=== PATIENT | female | born 1940 | race Caucasian/White ===

== ENCOUNTER 2020-10-08 15:01 | Observation (INO) ==
[2020-10-08] MEDS ORDERED: LACTATED RINGERS 1,000 ML IV ONE (15:17)
--- NOTE | 2020-10-08 15:21 | Emergency Department Note ---
SOB HPI General Chief Complaint: Shortness of Breath/Dyspnea Stated Complaint: SOB, cough Time Seen by Provider: 10/08/20 18:24 Source: patient and RN notes reviewed Mode of arrival: ambulatory Limitations: no limitations History of Present Illness HPI Narrative: Narrative: This patient was sent over from Dr. Hebert's office for what he felt was a COPD exacerbation. She has had shortness of breath and wheezing with a cough productive of white phlegm for the last several days. In the emergency room her O2 saturation is 87% on 2 L and her blood pressure is 83 systolic. She does not feel thirsty or dehydrated. She does not have any edema and no history of congestive heart failure or coronary disease. She does have a history of COPD. No other Covid symptoms such as headache loss of taste or diarrhea. Dr. Hebert did give her a DuoNeb treatment in the office. Related Data Home Medications Medication Instructions Recorded Confirmed aspirin 81 mg tablet,delayed 81 mg PO QPM tab 02/12/15 10/08/20 release sennosides 8.6 mg tablet 17.2 mg PO QNOON tab 06/22/17 10/08/20 carbidopa 25 mg-levodopa 100 mg 2 tab PO QID tab 04/14/19 10/08/20 tablet calcium citrate 500 mg PO QAM tab 10/04/19 10/08/20 cholecalciferol (vitamin D3) 2,000 unit PO QNOON 10/08/20 10/08/20 levothyroxine [Levoxyl] 50 mcg PO QAM 10/08/20 10/08/20 polyethylene glycol 3350 [Miralax] 17 g PO QPM 10/08/20 10/08/20 Previous Rx's Medication Instructions Recorded mirtazapine 30 mg tablet 30 mg PO QHS #90 tab 10/25/19 omeprazole 20 mg capsule,delayed 20 mg PO BID #180 cap 04/30/20 release inhalational spacing device #1 each 06/26/20 Spacer for inhaler #1 ea 06/27/20 lorazepam 1 mg tablet 1 mg PO BID #180 tab 07/09/20 albuterol sulfate 90 mcg/actuation 2 puff INHALATION Q6H PRN #18 g 07/17/20 aerosol inhaler ipratropium 0.5 mg-albuterol 3 mg 3 ml INHALATION BID PRN #15 ml 09/12/20 (2.5 mg base)/3 mL nebulization soln fluticasone fur. 200 mcg-umeclid 1 inh INHALATION QDAY #60 each 10/08/20 62.5 mcg-vilant 25 mcg inhalat.powder Allergies Allergy/AdvReac Type Severity Reaction Status Date / Time Banana Allergy Unknown Unknown Verified 10/08/20 15:04 Review of Systems ROS ROS Narrative: Narrative: All systems ED: reviewed and negative except as stated. [facility] Narrative Patient History Narrative: Narrative: Medical/Surgical/Family History All Active Problems (Updated 10/08/20 @ 19:49 by Carl Menon MD) Medicare annual wellness visit, subsequent (Acute) Shortness of breath (Acute) Chronic obstructive pulmonary disease (Acute) Acute exacerbation of COPD with asthma (Acute) Encounter for immunization (Acute) Weight loss (Acute) Anorexia (Acute) Left sciatic notch pain (Acute) Depression (Chronic) Right hip pain (Acute) LLQ pain (Acute) Vitamin B 12 deficiency (Chronic) History of tonsillectomy (Chronic) History of colonoscopy (Chronic 12/31/14) History of adenoidectomy (Chronic) Restless legs syndrome (Chronic) Parkinson disease (Chronic) Osteoporosis (Chronic) Menopausal and postmenopausal disorder (Chronic) Hypothyroidism (acquired) (Chronic) Hyperlipidemia (Chronic) Gastroesophageal reflux (Chronic) Dysphagia (Chronic) History of colonic polyps (Chronic) Medical History (Updated 10/08/20 @ 19:49 by Carl Menon MD) Acute exacerbation of COPD with asthma (Acute) Anorexia (Acute) Chronic obstructive pulmonary disease (Acute) Depression (Chronic) Dysphagia (Chronic) Encounter for immunization (Acute) Encounter for removal of sutures (Resolved) Gastroesophageal reflux (Chronic) History of colonic polyps (Chronic) Hyperlipidemia (Chronic) Hypothyroidism (acquired) (Chronic) Laceration (Resolved) Left sciatic notch pain (Acute) LLQ pain (Acute) Medicare annual wellness visit, subsequent (Acute) Menopausal and postmenopausal disorder (Chronic) NOS Osteoporosis (Chronic) Parkinson disease (Chronic) cervical dystonia Restless legs syndrome (Chronic) Right hip pain (Acute) Shortness of breath (Acute) Vitamin B 12 deficiency (Chronic) Weight loss (Acute) Surgical History History of adenoidectomy (Chronic) History of colonoscopy (Chronic 12/31/14) Dr Dumont [facility] History of tonsillectomy (Chronic) Family History Mother Malignant neoplasm of breast 53 Unknown Asthma Essential tremor Father , 72 Malignant neoplasm of prostate Social History Smoking Status: Never smoker Alcohol Intake Frequency: a few times a month Substance Use: does not use Exam Narrative Narrative: Narrative: General Limitations: no limitations Head Head: Present atraumatic, normocephalic and normal inspection Eye Eye: Present normal appearance and EOMI; Absent scleral icterus and conjunctival injection Neck Neck: Present normal inspection and full ROM Chest Chest: Present normal inspection and symmetric chest wall rise Respiratory Respiratory: Present wheezes, prolonged expiratory phase and decreased breath sounds; Absent respiratory distress Cardiovascular Cardiovascular: Present regular rate, normal rhythm and normal heart sounds Adbominal Abdominal: Present soft; Absent distention and tenderness Extremities Extremities: Present normal inspection and full ROM; Absent pedal edema and pretibial edema Neurological Neurological: Present alert Psychiatric Psychiatric: Present normal affect Skin Skin: Present warm (WNL) and dry; Absent diaphoresis Course Vital Signs Vital signs: Vital Signs Temperature 98.2 F 10/08/20 15:01 Pulse Rate 92 H 10/08/20 15:01 Respiratory Rate 20 10/08/20 15:01 Blood Pressure 140/109 10/08/20 15:01 Pulse Oximetry (%) 88 L 10/08/20 15:01 Temperature 98.2 F 10/08/20 15:01 Pulse Rate 93 H 10/08/20 19:31 Respiratory Rate 18 10/08/20 17:46 Blood Pressure 142/76 10/08/20 19:31 Pulse Oximetry (%) 95 10/08/20 19:31 [facility] MDM Narrative Medical decision making narrative: Narrative: This patient has a COPD exacerbation and is hypoxic off oxygen. We gave her Zithromax 500 mg IV a DuoNeb and Solu-Medrol 125 mg IV. She will be admitted to the hospital by Dr. Haddad. Lab Data Lab results reviewed: Yes I reviewed the patient's lab results. Lab results narrative: Lab work is unremarkable Result diagrams: 10/08/20 15:22 10/08/20 15:22 Labs: Lab Results 10/08/20 10/08/20 10/08/20 Range/Units 15:22 15:22 15:22 WBC 9.9 (4.5-11.0) K/mcL RBC 4.51 (4.00-5.20) M/mcL Hgb 13.8 (12.0-15.0) g/dL Hct 42.5 (36.0-48.0) % MCV 94.2 (80.0-100.0) fL MCH 30.6 (26.0-34.0) pg MCHC 32.5 (31.0-36.0) g/dL RDW 13.4 (11.5-14.5) % Plt Count 295 (140-440) K/mcL MPV 10.8 H (7.4-10.4) fL Neut % (Auto) 57.0 (38.0-78.0) % Lymph % (Auto) 21.1 (15.0-49.0) % [place] % (Auto) 7.6 (1.0-12.0) % Eos % (Auto) 13.3 H (0.0-7.0) % Baso % (Auto) 1.0 (0.0-2.0) % Lymph # (Auto) 2.09 (1.50-4.80) K/mcL [place] # (Auto) 0.75 (0.10-0.90) K/mcL Eos # (Auto) 1.32 H (0.00-0.70) K/mcL Baso # (Auto) 0.10 (0.00-0.20) K/mcL Absolute Neutrophils 5.63 (1.80-8.00) K/mcL VBG Lactic Acid (0.5-2.0) mmol/L Sodium 140 (133-145) mmol/L Potassium 4.4 (3.3-5.1) mmol/L Chloride 102 (96-108) mmol/L Carbon Dioxide 29 (22-30) mmol/L Anion Gap 9.0 (8.0-16.0) BUN 28 H (8-23) mg/dL Creatinine 1.1 (0.6-1.1) mg/dL GFR Calculation 48 Glucose 132 H (70-105) mg/dL Calcium 9.1 (8.6-10.4) mg/dL Total Bilirubin 0.3 (0.1-1.0) mg/dL AST 20 (<32) U/L ALT < 5 (<40) U/L Alkaline Phosphatase 73 (39-117) U/L Troponin T < 0.01 (<0.03) ng/mL NT-Pro-B Natriuret Pep 134.3 (<450.0) pg/mL Total Protein 7.3 (5.9-8.4) gm/dL Albumin 3.8 (3.2-5.2) gm/dL Globulin 3.5 (2.2-3.7) gm/dL Albumin/Globulin Ratio 1.1 (1.0-2.3) Urine Color Urine Appearance (Clear) Urine pH (5.0-9.0) Ur Specific [place] (1.000-1.035) Urine Protein (Negative) mg/dL Urine Glucose (UA) (Negative) mg/dL Urine Ketones (Negative) mg/dL Urine Occult Blood (Negative) mg/dL Urine Nitrate (Negative) Urine Bilirubin (Negative) mg/dL Urine Urobilinogen mg/dL Ur Leukocyte Esterase (Negative) /ug Urine RBC (0-3) /hpf Urine WBC (0-4) /hpf Ur Squamous Epith Cells (0-4) /hpf Urine Bacteria (0) /hpf Hyaline Casts (0-2) /lph Urine Mucus (None) /hpf Ur Culture Indicated? 10/08/20 10/08/20 Range/Units 15:22 17:11 WBC (4.5-11.0) K/mcL RBC (4.00-5.20) M/mcL Hgb (12.0-15.0) g/dL Hct (36.0-48.0) % MCV (80.0-100.0) fL MCH (26.0-34.0) pg MCHC (31.0-36.0) g/dL RDW (11.5-14.5) % Plt Count (140-440) K/mcL MPV (7.4-10.4) fL Neut % (Auto) (38.0-78.0) % Lymph % (Auto) (15.0-49.0) % [place] % (Auto) (1.0-12.0) % Eos % (Auto) (0.0-7.0) % Baso % (Auto) (0.0-2.0) % Lymph # (Auto) (1.50-4.80) K/mcL [place] # (Auto) (0.10-0.90) K/mcL Eos # (Auto) (0.00-0.70) K/mcL Baso # (Auto) (0.00-0.20) K/mcL Absolute Neutrophils (1.80-8.00) K/mcL VBG Lactic Acid 1.0 (0.5-2.0) mmol/L Sodium (133-145) mmol/L Potassium (3.3-5.1) mmol/L Chloride (96-108) mmol/L Carbon Dioxide (22-30) mmol/L Anion Gap (8.0-16.0) BUN (8-23) mg/dL Creatinine (0.6-1.1) mg/dL GFR Calculation Glucose (70-105) mg/dL Calcium (8.6-10.4) mg/dL Total Bilirubin (0.1-1.0) mg/dL AST (<32) U/L ALT (<40) U/L Alkaline Phosphatase (39-117) U/L Troponin T (<0.03) ng/mL NT-Pro-B Natriuret Pep (<450.0) pg/mL Total Protein (5.9-8.4) gm/dL Albumin (3.2-5.2) gm/dL Globulin (2.2-3.7) gm/dL Albumin/Globulin Ratio (1.0-2.3) Urine Color Yellow Urine Appearance Clear (Clear) Urine pH 6.0 (5.0-9.0) Ur Specific [place] 1.020 (1.000-1.035) Urine Protein Negative (Negative) mg/dL Urine Glucose (UA) Negative (Negative) mg/dL Urine Ketones 5 A (Negative) mg/dL Urine Occult Blood Negative (Negative) mg/dL Urine Nitrate Negative (Negative) Urine Bilirubin Negative (Negative) mg/dL Urine Urobilinogen Negative mg/dL Ur Leukocyte Esterase Negative (Negative) /ug Urine RBC 1 (0-3) /hpf Urine WBC 2 (0-4) /hpf Ur Squamous Epith Cells 6 H (0-4) /hpf Urine Bacteria Mod A (0) /hpf Hyaline Casts 3 H (0-2) /lph Urine Mucus Few A (None) /hpf Ur Culture Indicated? No ED POC Tests ED POC Tests: JOSE - Influenza A Negative JOSE - Influenza B Negative JOSE - SARS Antigen Negative Radiology Data Radiology results reviewed: Yes I reviewed the patient's radiology results. Radiology results narrative: Chest x-ray was negative Discharge Plan Patient/Caregiver Discharge Instructions Pt seen by [employer]/PA only: No Clinical Impression: Acute exacerbation of COPD with asthma Patient Disposition: Xfer As Inpt ([facility])
--- NOTE | 2020-10-08 15:22 | XRay Report ---
INDICATION: Dyspnea. History of COPD and asthma TECHNIQUE: AP chest x-ray chest x-ray COMPARISON: Previous chest x-rays dated 10/04/2019/ and 09/06/2020. Previous CT scan dated 09/17/2020 FINDINGS:Increased AP diameter of the chest and appearance consistent with COPD Lungs:Lungs are negative. No focal pulmonary parenchymal infiltrate or mass. There is mild peribronchial thickening which may be secondary to asthma Heart, vascular:No significant cardiomegaly. Pulmonary vascularity is normal. No pulmonary edema or pulmonary congestion Mediastinum, amy:No mediastinal widening. No hilar mass Pleura:No pleural fluid. No pleural-based mass or calcification Skeletal:Negative. IMPRESSION: 1. COPD 2. No acute or focal abnormality. No interval change Interpreted and Authenticated by: Gen Gonzalez 10/08/20
[2020-10-08] MEDS ORDERED: IPRATROPIUM/ALBUTEROL 3 ML AMPUL.NEB NEB ONE ×2 (16:16→20:09)
[2020-10-08] MEDS ORDERED: methylPREDNISolone SOD SUCC 125 MG/2 ML VIAL IV ONE (16:16)
[2020-10-08] MEDS ORDERED: AZITHROMYCIN 500 MG in DEXTROSE 5% IN WATER 250 ML IV ONE ×2 (16:16→16:25)
[2020-10-08 16:22] LABS: Eosinophils # (Auto) 1.32 K/mcL (0.00-0.70); Eosinophils % (Auto) 13.3 % (0.0-7.0); Hematocrit 42.5 % (36.0-48.0); Hemoglobin 13.8 g/dL (12.0-15.0); Lymphocytes # (Auto) 2.09 K/mcL (1.50-4.80); Lymphocytes % (Auto) 21.1 % (15.0-49.0); Mean Cell Volume 94.2 fL (80.0-100.0); Mean Corpuscular HGB Conc 32.5 g/dL (31.0-36.0); Mean Platelet Volume 10.8 fL (7.4-10.4); Monocytes # (Auto) 0.75 K/mcL (0.10-0.90); Monocytes % (Auto) 7.6 % (1.0-12.0); Platelet Count 295 K/mcL (140-440); RBC 4.51 M/mcL (4.00-5.20); Red Cell Distribution Width 13.4 % (11.5-14.5); WBC 9.9 K/mcL (4.5-11.0)
[2020-10-08 16:31] LABS: proBNP 134.3 pg/mL (<450.0)
[2020-10-08 16:32] LABS: ALT/SGPT < 5 U/L (<40); AST/SGOT 20 U/L (<32); Albumin 3.8 gm/dL (3.2-5.2); Albumin/Globulin Ratio 1.1 (1.0-2.3); Alkaline Phosphatase 73 U/L (39-117); Bilirubin,Total 0.3 mg/dL (0.1-1.0); Blood Urea Nitrogen 28 mg/dL (8-23); Calcium 9.1 mg/dL (8.6-10.4); Carbon Dioxide 29 mmol/L (22-30); Chloride 102 mmol/L (96-108); Globulin 3.5 gm/dL (2.2-3.7); Glomerular Filtration Rate 48; Glucose 132 mg/dL (70-105)
[2020-10-08 17:55] LABS: Appearance,Urine CLEAR (Clear); Bacteria,Urine MOD /hpf (0); Bilirubin,Urine Negative (Negative); Color,Urine YELLOW; Culture Indicated,Urine No; Glucose,Urine (UA) Negative (Negative); Ketones,Urine 5 mg/dL (Negative); Leukocyte Esterase,Urine Negative /ug (Negative); Mucus,Urine FEW /hpf; Nitrate,Urine Negative (Negative); Protein,Urine Negative (Negative); Urine Blood Negative (Negative); Urine Hyaline Cast 3 /lph (0-2); Urine RBC 1 /hpf (0-3); Urine Squamous Epithelial Cell 6 /hpf (0-4); Urine WBC 2 /hpf (0-4); Urobilinogen,Urine Negative
--- NOTE | 2020-10-08 19:19 | Internal Med History&Physical ---
HPI History of Present Illness Patient information: Note initiated : 10/08/20 at 7:18 pm Service Date, if different from initiated Date: [] Patient: Kavitha Tristan a 80 y/o F admitted on for SOB, cough. Chief Complaint: Shortness of breath/hypoxia History of present illness: Ms. Tristan is a 80 year old F with known history of COPD on bronchodilators who presented to the primary care physician's office today for increasing shortness of breath/cough, imaging at minor care was unremarkable. She was however found to be hypoxic and was sent to the ER for further evaluation and management of COPD. Initial work-up was consistent with COPD exacerbation/ABG with PaO2 56 on 2 L oxygen. Patient was started on 2 L oxygen/bronchodilators/IV steroids and subsequently hospital service was consulted. Chest imaging no acute process At the time of evaluation patient is alert and oriented. She denies active distress. She endorses to history as above. She denies fever, chills, productive sputum, joint pain, weight loss, rash, headache or photophobia. She denies changes in medications. Review of systems 10 point review system was performed and is negative except for 1 discussed above PFSH PFSH All Active Problems (Updated 10/08/20 @ 19:49 by Carl Menon MD) Medicare annual wellness visit, subsequent (Acute) Shortness of breath (Acute) Chronic obstructive pulmonary disease (Acute) Acute exacerbation of COPD with asthma (Acute) Encounter for immunization (Acute) Weight loss (Acute) Anorexia (Acute) Left sciatic notch pain (Acute) Depression (Chronic) Right hip pain (Acute) LLQ pain (Acute) Vitamin B 12 deficiency (Chronic) History of tonsillectomy (Chronic) History of colonoscopy (Chronic 12/31/14) History of adenoidectomy (Chronic) Restless legs syndrome (Chronic) Parkinson disease (Chronic) Osteoporosis (Chronic) Menopausal and postmenopausal disorder (Chronic) Hypothyroidism (acquired) (Chronic) Hyperlipidemia (Chronic) Gastroesophageal reflux (Chronic) Dysphagia (Chronic) History of colonic polyps (Chronic) Medical History (Updated 10/08/20 @ 19:49 by Carl Menon MD) Acute exacerbation of COPD with asthma (Acute) Anorexia (Acute) Chronic obstructive pulmonary disease (Acute) Depression (Chronic) Dysphagia (Chronic) Encounter for immunization (Acute) Encounter for removal of sutures (Resolved) Gastroesophageal reflux (Chronic) History of colonic polyps (Chronic) Hyperlipidemia (Chronic) Hypothyroidism (acquired) (Chronic) Laceration (Resolved) Left sciatic notch pain (Acute) LLQ pain (Acute) Medicare annual wellness visit, subsequent (Acute) Menopausal and postmenopausal disorder (Chronic) NOS Osteoporosis (Chronic) Parkinson disease (Chronic) cervical dystonia Restless legs syndrome (Chronic) Right hip pain (Acute) Shortness of breath (Acute) Vitamin B 12 deficiency (Chronic) Weight loss (Acute) Surgical History History of adenoidectomy (Chronic) History of colonoscopy (Chronic 12/31/14) Dr Dumont [facility] History of tonsillectomy (Chronic) Family History Mother Malignant neoplasm of breast 53 Unknown Asthma Essential tremor Father , 72 Malignant neoplasm of prostate Social History (Updated 02/07/20 @ 06:35 by Zachary Hebert MD) marital status: education level: college occupational status: retired other: 4 children/3 ext and 10 bio smoking status: Never smoker alcohol intake frequency: a few times a month substance use type: does not use MEDS/ALLERGIES Home Medications and Allergies Home Medications Medication Instructions Recorded Confirmed Type aspirin 81 mg tablet,delayed 81 mg PO QPM tab 02/12/15 10/08/20 History release sennosides 8.6 mg tablet 17.2 mg PO QNOON tab 06/22/17 10/08/20 History carbidopa 25 mg-levodopa 100 mg 2 tab PO QID tab 04/14/19 10/08/20 History tablet calcium citrate 500 mg PO QAM tab 10/04/19 10/08/20 History mirtazapine 30 mg tablet 30 mg PO QHS #90 tab 10/25/19 10/08/20 Rx omeprazole 20 mg capsule,delayed 20 mg PO BID #180 cap 04/30/20 10/08/20 Rx release inhalational spacing device #1 each 06/26/20 10/08/20 Rx Spacer for inhaler #1 ea 06/27/20 10/08/20 Rx lorazepam 1 mg tablet 1 mg PO BID #180 tab 07/09/20 10/08/20 Rx albuterol sulfate 90 mcg/actuation 2 puff INHALATION Q6H PRN #18 g 07/17/20 10/08/20 Rx aerosol inhaler ipratropium 0.5 mg-albuterol 3 mg 3 ml INHALATION BID PRN #15 ml 09/12/20 10/08/20 Rx (2.5 mg base)/3 mL nebulization soln cholecalciferol (vitamin D3) 2,000 unit PO QNOON 10/08/20 10/08/20 History fluticasone fur. 200 mcg-umeclid 1 inh INHALATION QDAY #60 each 10/08/20 10/08/20 Rx 62.5 mcg-vilant 25 mcg inhalat.powder levothyroxine [Levoxyl] 50 mcg PO QAM 10/08/20 10/08/20 History polyethylene glycol 3350 [Miralax] 17 g PO QPM 10/08/20 10/08/20 History Allergies Allergy/AdvReac Type Severity Reaction Status Date / Time Banana Allergy Unknown Unknown Verified 10/08/20 15:04 EXAM Constitutional Vitals: Temp Pulse Resp BP Pulse Ox 98.2 F 95 H 18 142/81 93 10/08/20 15:01 10/08/20 18:46 10/08/20 17:46 10/08/20 18:46 10/08/20 18:46 Thin and frail elderly, BMI 15 Head normocephalic Oral cavity moist No ear nose discharge Eye movement symmetrical Neck supple no lymphadenopathy S1-S2 regular tachycardia Rhonchi/minimally labored breathing on 3 L oxygen Nondistended nontender abdomen Lower extremity no cyanosis clubbing or joint swelling Skin no suspicious lesion Psych no hallucination Neuro normal higher function DATA Data Completed and Pending Labs: Labs from last 24 hours 10/08/20 10/08/20 10/08/20 17:11 15:22 15:22 WBC RBC Hgb Hct MCV MCH MCHC RDW Plt Count MPV Neut % (Auto) Lymph % (Auto) [place] % (Auto) Eos % (Auto) Baso % (Auto) Lymph # (Auto) [place] # (Auto) Eos # (Auto) Baso # (Auto) Absolute Neutrophils VBG Lactic Acid 1.0 Sodium Potassium Chloride Carbon Dioxide Anion Gap BUN Creatinine GFR Calculation Glucose Calcium Total Bilirubin AST ALT Alkaline Phosphatase Troponin T < 0.01 NT-Pro-B Natriuret Pep Total Protein Albumin Globulin Albumin/Globulin Ratio Urine Color Yellow Urine Appearance Clear Urine pH 6.0 Ur Specific [place] 1.020 Urine Protein Negative Urine Glucose (UA) Negative Urine Ketones 5 A Urine Occult Blood Negative Urine Nitrate Negative Urine Bilirubin Negative Urine Urobilinogen Negative Ur Leukocyte Esterase Negative Urine RBC 1 Urine WBC 2 Ur Squamous Epith Cells 6 H Urine Bacteria Mod A Hyaline Casts 3 H Urine Mucus Few A Ur Culture Indicated? No 10/08/20 10/08/20 15:22 15:22 WBC 9.9 RBC 4.51 Hgb 13.8 Hct 42.5 MCV 94.2 MCH 30.6 MCHC 32.5 RDW 13.4 Plt Count 295 MPV 10.8 H Neut % (Auto) 57.0 Lymph % (Auto) 21.1 [place] % (Auto) 7.6 Eos % (Auto) 13.3 H Baso % (Auto) 1.0 Lymph # (Auto) 2.09 [place] # (Auto) 0.75 Eos # (Auto) 1.32 H Baso # (Auto) 0.10 Absolute Neutrophils 5.63 VBG Lactic Acid Sodium 140 Potassium 4.4 Chloride 102 Carbon Dioxide 29 Anion Gap 9.0 BUN 28 H Creatinine 1.1 GFR Calculation 48 Glucose 132 H Calcium 9.1 Total Bilirubin 0.3 AST 20 ALT < 5 Alkaline Phosphatase 73 Troponin T NT-Pro-B Natriuret Pep 134.3 Total Protein 7.3 Albumin 3.8 Globulin 3.5 Albumin/Globulin Ratio 1.1 Urine Color Urine Appearance Urine pH Ur Specific [place] Urine Protein Urine Glucose (UA) Urine Ketones Urine Occult Blood Urine Nitrate Urine Bilirubin Urine Urobilinogen Ur Leukocyte Esterase Urine RBC Urine WBC Ur Squamous Epith Cells Urine Bacteria Hyaline Casts Urine Mucus Ur Culture Indicated? A/P Narrative A/P Narrative: * Acute exacerbation of COPD bronchodilators/steroids/supplemental oxygen * Acute hypoxic respiratory failure secondary to above. Continue supplemental oxygen. RT to perform exercise oximetry for home oxygen qualification * Anxiety disorder continue home dose diazepam/mirtazapine * Hypothyroidism. Continue thyroxine * History of Parkinson's continue levodopa carbidopa * Prophylaxis Heparin Plan * Observation admit * Bronchodilators/steroids/pulmonary toilet * Pre-existing medical condition management home meds * PT OT nutrition support Time Spent With Patient Time: Total time spent is greater than 50% in coordination of care (as documented) at patient's floor/unit and/or counseling patient:
[2020-10-08] MEDS ORDERED: POLYETHYLENE GLYCOL 3350 17 GM PACKET PO PRN (19:51)
[2020-10-08] MEDS ORDERED: MAGNESIUM SULFATE 2 GM/50 ML BAG IV PRN (19:51)
[2020-10-08] MEDS ORDERED: ACETAMINOPHEN 650 MG/65 ML BAG IV PRN (19:51)
[2020-10-08] MEDS ORDERED: MELATONIN 3 MG TABLET PO PRN (19:51)
[2020-10-08] MEDS ORDERED: ONDANSETRON 4 MG ODT TABLET SL PRN (19:51)
[2020-10-08] MEDS ORDERED: ONDANSETRON 4 MG/2 ML VIAL IV PRN (19:51)
[2020-10-08] MEDS ORDERED: ACETAMINOPHEN 325 MG TABLET PO PRN (19:51)
[2020-10-08] MEDS ORDERED: POTASSIUM CHLORIDE 40 MEQ in DEXTROSE 5% IN WATER 500 ML IV PRN (19:51)
[2020-10-08] MEDS ORDERED: BISACODYL 10 MG SUPP.RECT PR PRN (19:51)
[2020-10-08] MEDS: IPRATROPIUM/ALBUTEROL 3 ML AMPUL.NEB NEB SCH ×2 (20:00→22:59)
[2020-10-08] MEDS: LORazepam 1 MG TABLET PO SCH (20:35)
[2020-10-08] MEDS: DOCUSATE SODIUM 100 MG CAPSULE PO SCH (20:35)
[2020-10-08] MEDS: CARBIDOPA/LEVODOPA 25/100 TABLET PO SCH (20:36)
[2020-10-08] MEDS: OMEPRAZOLE 20 MG CAPSULE PO SCH (20:36)
[2020-10-08] MEDS: methylPREDNISolone SOD SUCC 125 MG/2 ML VIAL IV SCH (20:37)
[2020-10-08] MEDS: HEPARIN 5,000 UNIT/ML VIAL SQ SCH (20:37)
[2020-10-08] MEDS: 0.9 % SODIUM CHLORIDE 10 ML SYRINGE IV SCH (20:38)
[2020-10-08] MEDS ORDERED: MIRTAZAPINE 15 MG TABLET PO SCH (21:00)
[2020-10-08] MEDS ORDERED: SENNOSIDES/DOCUSATE SODIUM 1 TAB TABLET PO SCH (21:00)
[2020-10-08] MEDS ORDERED: NON FORMULARY MEDICATION 1 DOSE MISCELL (Polyethylene Glycol 3350 [Miralax] 17 G) PO SCH (21:00)
[2020-10-08] MEDS ORDERED: ASPIRIN 81 MG TAB.CHEW PO SCH (21:00)
[2020-10-08] MEDS: BUDESONIDE 0.5 MG/2 ML AMPUL.NEB NEB SCH (22:59)
[2020-10-09] MEDS: IPRATROPIUM/ALBUTEROL 3 ML AMPUL.NEB NEB SCH ×3 (03:21→11:15)
[2020-10-09] MEDS: 0.9 % SODIUM CHLORIDE 10 ML SYRINGE IV SCH (04:52)
[2020-10-09] MEDS ORDERED: LEVOTHYROXINE 50 MCG TABLET PO SCH (07:30)
[2020-10-09] MEDS: OMEPRAZOLE 20 MG CAPSULE PO SCH (07:39)
[2020-10-09] MEDS: BUDESONIDE 0.5 MG/2 ML AMPUL.NEB NEB SCH (07:47)
[2020-10-09] MEDS ORDERED: MULTIVIT,THER IRON,CA,FA & MIN 1 TABLET PO SCH (09:00)
[2020-10-09] MEDS ORDERED: CALCIUM (OYSTER SHELL) 500 MG TABLET PO SCH (09:00)
[2020-10-09] MEDS: CARBIDOPA/LEVODOPA 25/100 TABLET PO SCH ×2 (09:45→12:15)
[2020-10-09] MEDS: LORazepam 1 MG TABLET PO SCH (09:45)
[2020-10-09] MEDS: HEPARIN 5,000 UNIT/ML VIAL SQ SCH (09:45)
[2020-10-09] MEDS: DOCUSATE SODIUM 100 MG CAPSULE PO SCH (09:45)
[2020-10-09] MEDS: methylPREDNISolone SOD SUCC 125 MG/2 ML VIAL IV SCH (09:46)
--- NOTE | 2020-10-09 11:15 | Discharge Summary ---
Discharge Provider Provider Patient information: Note initiated : 10/09/20 at 11:12 am Service Date, if different from initiated Date: [] Patient: Kavitha Tristan a 80 y/o F admitted on 10/08/20 for SOB, cough. Discharge diagnosis * Acute exacerbation of COPD-clinically improved on bronchodilators/steroids/supplemental oxygen. * Acute hypoxic respiratory failure secondary to above. Continue oxygen at 2 to 3 L at rest to maintain sats around 86 to 88%. Discharge home oxygen * Anxiety disorder continue home dose diazepam/mirtazapine * Hypothyroidism. Managed on thyroxine * History of Parkinson's continue levodopa carbidopa Brief hospital course History of present illness: Ms. Tristan is a 80 year old F with known history of COPD on bronchodilators who presented to the primary care physician's office today for increasing shortness of breath/cough, imaging at [facility] was unremarkable. She was however found to be hypoxic and was sent to the ER for further evaluation and management of COPD. Initial work-up was consistent with COPD exacerbation/ABG with PaO2 56 on 2 L oxygen. Patient was started on 2 L oxygen/bronchodilators/IV steroids and subsequently hospital service was consulted. Chest imaging no acute process At the time of evaluation patient is alert and oriented. She denies active distress. She endorses to history as above. She denies fever, chills, productive sputum, joint pain, weight loss, rash, headache or photophobia. She denies changes in medications. 10/09-patient doing well. No overnight events. On 2 L oxygen at rest and 5-6 on exertion. Qualifies for home oxygen. Discharging home on bronchodilat ors/steroids/home oxygen and recommend follow-up with pulmonology/PCP for optimization of COPD management. Date of admission: 10/08/20 19:46 Discharge date: 10/09/20 Primary care physician: Zachary Hebert MD Consults: 10/08/20 Consult to Physician [CONS] Stat Comment: Consulting Provider: Jeovany Payne Reason For Exam: Physician to Consult Discharge Meds Discharge Medications Home Medications aspirin 81 mg tablet,delayed release 81 mg PO QPM tab 02/12/15 [History Confirmed 10/08/20 Last Taken Unknown] sennosides 8.6 mg tablet 17.2 mg PO QNOON tab 06/22/17 [History Confirmed 10/08/20 Last Taken Unknown] carbidopa 25 mg-levodopa 100 mg tablet 2 tab PO QID tab 04/14/19 [History Confirmed 10/08/20 Last Taken Unknown] calcium citrate 500 mg PO QAM tab 10/04/19 [History Confirmed 10/08/20 Last Taken Unknown] mirtazapine 30 mg tablet 30 mg PO QHS #90 tab 10/25/19 [Rx Confirmed 10/08/20 Last Taken Unknown] omeprazole 20 mg capsule,delayed release 20 mg PO BID #180 cap 04/30/20 [Rx Confirmed 10/08/20 Last Taken Unknown] inhalational spacing device #1 each 06/26/20 [Rx Confirmed 10/08/20 Last Taken Unknown] Spacer for inhaler #1 ea 06/27/20 [Rx Confirmed 10/08/20 Last Taken Unknown] lorazepam 1 mg tablet 1 mg PO BID #180 tab 07/09/20 [Rx Confirmed 10/08/20 Last Taken Unknown] albuterol sulfate 90 mcg/actuation aerosol inhaler 2 puff INHALATION Q6H PRN #18 g 07/17/20 [Rx Confirmed 10/08/20 Last Taken Unknown] ipratropium 0.5 mg-albuterol 3 mg (2.5 mg base)/3 mL nebulization soln 3 ml INHALATION BID PRN #15 ml 09/12/20 [Rx Confirmed 10/08/20 Last Taken Unknown] cholecalciferol (vitamin D3) 2,000 unit PO QNOON 10/08/20 [History Confirmed 10/08/20 Last Taken Unknown] fluticasone fur. 200 mcg-umeclid 62.5 mcg-vilant 25 mcg inhalat.powder 1 inh INHALATION QDAY #60 each 10/08/20 [Rx Confirmed 10/08/20 Last Taken Unknown] levothyroxine [Levoxyl] 50 mcg PO QAM 10/08/20 [History Confirmed 10/08/20 Last Taken Unknown] polyethylene glycol 3350 [Miralax] 17 g PO QPM 10/08/20 [History Confirmed 10/08/20 Last Taken Unknown] prednisone 40 mg PO QDAY #6 tab 10/09/20 [Rx Last Taken Unknown] COURSE Hospital Course Hospital course: . Discharge diagnosis: . Time Spent with Patient Time attestation: Total time spent providing and/or coordinating discharge services: EXAM Constitutional Vitals: Temp Pulse Resp BP Pulse Ox 98.4 F 89 20 128/70 93 10/09/20 08:00 10/09/20 08:00 10/09/20 08:00 10/09/20 08:00 10/09/20 08:00 Discharge Data Data Completed and Pending Labs on day of discharge: Labs from last 24 hours 10/09/20 10/09/20 10/08/20 05:10 05:10 17:11 WBC Pending RBC Pending Hgb Pending Hct Pending MCV Pending MCH Pending MCHC Pending RDW Pending Plt Count Pending MPV Pending Neut % (Auto) Pending Lymph % (Auto) [place] % (Auto) Eos % (Auto) Baso % (Auto) Lymph # (Auto) [place] # (Auto) Eos # (Auto) Baso # (Auto) Absolute Neutrophils VBG Lactic Acid Sodium Pending Potassium Pending Chloride Pending Carbon Dioxide Pending Anion Gap Pending BUN Pending Creatinine Pending GFR Calculation Pending Glucose Pending Uric Acid Pending Calcium Pending Phosphorus Pending Magnesium Pending Total Bilirubin Pending Direct Bilirubin Pending GGT Pending AST Pending ALT Pending Alkaline Phosphatase Pending Lactate Dehydrogenase Pending Troponin T NT-Pro-B Natriuret Pep Total Protein Pending Albumin Pending Globulin Pending Albumin/Globulin Ratio Pending Triglycerides Pending Urine Color Yellow Urine Appearance Clear Urine pH 6.0 Ur Specific [place] 1.020 Urine Protein Negative Urine Glucose (UA) Negative Urine Ketones 5 A Urine Occult Blood Negative Urine Nitrate Negative Urine Bilirubin Negative Urine Urobilinogen Negative Ur Leukocyte Esterase Negative Urine RBC 1 Urine WBC 2 Ur Squamous Epith Cells 6 H Urine Bacteria Mod A Hyaline Casts 3 H Urine Mucus Few A Ur Culture Indicated? No 10/08/20 10/08/20 10/08/20 15:22 15:22 15:22 WBC RBC Hgb Hct MCV MCH MCHC RDW Plt Count MPV Neut % (Auto) Lymph % (Auto) [place] % (Auto) Eos % (Auto) Baso % (Auto) Lymph # (Auto) [place] # (Auto) Eos # (Auto) Baso # (Auto) Absolute Neutrophils VBG Lactic Acid 1.0 Sodium 140 Potassium 4.4 Chloride 102 Carbon Dioxide 29 Anion Gap 9.0 BUN 28 H Creatinine 1.1 GFR Calculation 48 Glucose 132 H Uric Acid Calcium 9.1 Phosphorus Magnesium Total Bilirubin 0.3 Direct Bilirubin GGT AST 20 ALT < 5 Alkaline Phosphatase 73 Lactate Dehydrogenase Troponin T < 0.01 NT-Pro-B Natriuret Pep 134.3 Total Protein 7.3 Albumin 3.8 Globulin 3.5 Albumin/Globulin Ratio 1.1 Triglycerides Urine Color Urine Appearance Urine pH Ur Specific [place] Urine Protein Urine Glucose (UA) Urine Ketones Urine Occult Blood Urine Nitrate Urine Bilirubin Urine Urobilinogen Ur Leukocyte Esterase Urine RBC Urine WBC Ur Squamous Epith Cells Urine Bacteria Hyaline Casts Urine Mucus Ur Culture Indicated? 10/08/20 15:22 WBC 9.9 RBC 4.51 Hgb 13.8 Hct 42.5 MCV 94.2 MCH 30.6 MCHC 32.5 RDW 13.4 Plt Count 295 MPV 10.8 H Neut % (Auto) 57.0 Lymph % (Auto) 21.1 [place] % (Auto) 7.6 Eos % (Auto) 13.3 H Baso % (Auto) 1.0 Lymph # (Auto) 2.09 [place] # (Auto) 0.75 Eos # (Auto) 1.32 H Baso # (Auto) 0.10 Absolute Neutrophils 5.63 VBG Lactic Acid Sodium Potassium Chloride Carbon Dioxide Anion Gap BUN Creatinine GFR Calculation Glucose Uric Acid Calcium Phosphorus Magnesium Total Bilirubin Direct Bilirubin GGT AST ALT Alkaline Phosphatase Lactate Dehydrogenase Troponin T NT-Pro-B Natriuret Pep Total Protein Albumin Globulin Albumin/Globulin Ratio Triglycerides Urine Color Urine Appearance Urine pH Ur Specific [place] Urine Protein Urine Glucose (UA) Urine Ketones Urine Occult Blood Urine Nitrate Urine Bilirubin Urine Urobilinogen Ur Leukocyte Esterase Urine RBC Urine WBC Ur Squamous Epith Cells Urine Bacteria Hyaline Casts Urine Mucus Ur Culture Indicated? Discharge Plan Patient/Caregiver Discharge Instructions Activity: increase activity as tolerated and wear oxygen at all times Diet: Regular Diet Activity Restrictions/Additional Instructions: Home oxygen to titrate to sats between 86 to 88% Continue steroids for additional 3 days Bronchodilators Follow-up PCP in 5 to 7 days outpatient pulmonology follow-up for management of COPD Prescriptions: New prednisone 20 mg tablet 40 mg PO QDAY Qty: 6 RF: 0 Continued omeprazole 20 mg capsule,delayed release(DR/EC) 20 mg PO BID Qty: 180 RF: 1 (DME) Aerovent Plus Spacer See Rx Instructions .ROUTE .MEDSUPPLY Qty: 1 RF: 0 (DME) Spacer for inhaler Qty: 1 RF: 0 lorazepam [Ativan] 1 mg tablet 1 mg PO BID Qty: 180 RF: 0 albuterol sulfate [ProAir HFA] 90 mcg/actuation HFA aerosol inhaler 2 puff INHALATION Q6H PRN (Reason: shortness of breath or wheezing) Qty: 18 RF: 5 ipratropium-albuterol 0.5 mg-3 mg(2.5 mg base)/3 mL solution for nebulization 3 ml INHALATION BID PRN (Reason: Coughing and wheezing) Qty: 15 RF: 1 aspirin 81 mg tablet,delayed release (DR/EC) 81 mg PO QPM RF: 0 sennosides [Senna Laxative] 8.6 mg tablet 17.2 mg PO QNOON RF: 0 calcium citrate 250 mg calcium tablet 500 mg PO QAM RF: 0 carbidopa-levodopa [Sinemet] 25-100 mg tablet 2 tab PO QID RF: 0 mirtazapine 30 mg tablet 30 mg PO QHS Qty: 90 RF: 1 Trelegy Ellipta 200-62.5-25 mcg blister with device 1 inh INHALATION QDAY Qty: 60 RF: 5 polyethylene glycol 3350 [Miralax] 17 gram powder in packet 17 g PO QPM RF: 0 levothyroxine [Levoxyl] 50 mcg tablet 50 mcg PO QAM RF: 0 cholecalciferol (vitamin D3) 1,000 unit capsule 2,000 unit PO QNOON RF: 0 Follow Up Plan Patient Disposition: Home, Self-Care Rehab Potential: Fair I certify that the patient requires SNF services: No Overall status at discharge: patient is progressing back to baseline Discharge Orders: Discharge Order (Routine); Ordered 10/09/20 Ordered By: Jeovany COLÓN VTE Deep Vein Thrombosis/Pulmonary Embolism Present on Admission: No
[2020-10-09] MEDS ORDERED: VITAMIN D3 1,000 UNIT TABLET PO SCH (12:00)
[2020-10-09] MEDS ORDERED: SENNOSIDES 1 TABLET PO SCH (12:00)
[2020-10-09 13:55] LABS: Basophils # (Auto) 0.02 K/mcL (0.00-0.20); Basophils % (Auto) 0.3 % (0.0-2.0); Eosinophils # (Auto) 0 K/mcL (0.00-0.70); Eosinophils % (Auto) 0 % (0.0-7.0); Hematocrit 41.5 % (36.0-48.0); Hemoglobin 13.2 g/dL (12.0-15.0); Lymphocytes # (Auto) 0.98 K/mcL (1.50-4.80); Lymphocytes % (Auto) 14.3 % (15.0-49.0); Mean Cell Volume 94.5 fL (80.0-100.0); Mean Corpuscular HGB Conc 31.8 g/dL (31.0-36.0); Monocytes % (Auto) 4.4 % (1.0-12.0); Platelet Count 283 K/mcL (140-440); RBC 4.39 M/mcL (4.00-5.20); Red Cell Distribution Width 13.7 % (11.5-14.5); WBC 6.9 K/mcL (4.5-11.0)
[2020-10-09 14:19] LABS: ALT/SGPT 11 U/L (<40); AST/SGOT 19 U/L (<32); Albumin 3.5 gm/dL (3.2-5.2); Albumin/Globulin Ratio 1.1 (1.0-2.3); Alkaline Phosphatase 65 U/L (39-117); Bilirubin,Direct < 0.2 mg/dL (<0.3); Bilirubin,Total 0.3 mg/dL (0.1-1.0); Blood Urea Nitrogen 24 mg/dL (8-23); Calcium 8.9 mg/dL (8.6-10.4); Carbon Dioxide 26 mmol/L (22-30); Chloride 102 mmol/L (96-108); Globulin 3.3 gm/dL (2.2-3.7); Glomerular Filtration Rate 61; Glucose 134 mg/dL (70-105); Lactate Dehydrogenase 224 U/L (135-225); Phosphorous 4.1 mg/dL (2.5-4.5); Triglycerides 43 mg/dL (<150); Uric Acid 4.6 mg/dL (2.5-8.0)
[2020-10-09] MEDS ORDERED: POLYETHYLENE GLYCOL 3350 17 GM PACKET PO SCH (21:00)
== END 2020-10-09 13:45 | disposition home or self-care (01) ==
LOC: MEDSUR 15:01 → ED 15:01 → MEDSUR 19:44
PROVIDERS: ADMIT Internal Medicine; ATTEND Internal Medicine

== ENCOUNTER 2022-10-09 20:50 | Inpatient (IN) ==
--- NOTE | 2022-10-09 21:03 | Emergency Department Note ---
Fall HPI General Chief Complaint: Fall Stated Complaint: fall Time Seen by Provider: 10/09/22 20:53 Source: family Mode of arrival: wheelchair Limitations: other History of Present Illness HPI Narrative: Narrative: Karyna presents to the ED with patient with complaints of a fall that occurred shortly prior to arrival. states that he heard a thump in the kitchen and came in and found her on the ground. The fall was unwitnessed. has dementia and does not communicate well. states that she is not supposed to be walking without a walker but she was in the kitchen without her walker. He states that she has been moaning complaining of the left hip hurts. he states that she was bleeding from the left side of her head. denies nausea, vomiting, loss of consciousness, complains of abdominal pain or shoulder pain. denies any other alleviating or aggravating factors. He states that his is at her baseline mentation with no deficits. Related Data Home Medications Medication Instructions Recorded Confirmed aspirin 81 mg tablet,delayed 81 mg PO QPM 02/12/15 09/28/22 release sennosides 8.6 mg tablet (Senna 17.2 mg PO QNOON 06/22/17 09/28/22 Laxative) carbidopa 25 mg-levodopa 100 mg 2 tab PO QID 04/14/19 09/28/22 tablet (Sinemet) calcium citrate 500 mg PO QAM 10/04/19 09/28/22 cholecalciferol (vitamin D3) 50 2,000 unit PO QNOON 10/08/20 09/28/22 mcg (2,000 unit) capsule polyethylene glycol 3350 17 gram 17 g PO QPM 10/08/20 09/28/22 oral powder packet (Miralax) Previous Rx's Medication Instructions Recorded mirtazapine 30 mg tablet 30 mg PO QHS #90 tabs 04/21/22 fluticasone fur. 200 mcg-umeclid 1 ea PO QDAY #60 ea 07/16/22 62.5 mcg-vilant 25 mcg inhalat.powder (Trelegy Ellipta) levothyroxine 50 mcg tablet See Rx Instructions .Route 07/21/22 .COMPLEX #90 tabs omeprazole 20 mg capsule,delayed 20 mg PO BID #180 caps 07/30/22 release lorazepam 1 mg tablet (Ativan) 1 mg PO .COMPLEX #90 tabs 09/09/22 Allergies Allergy/AdvReac Type Severity Reaction Status Date / Time Banana AdvReac Unknown Nausea Verified 09/28/22 13:33 Review of Systems ROS ROS Narrative: Narrative: All systems ED: reviewed and negative except as stated. [facility] Narrative Patient History Narrative: Narrative: Medical/Surgical/Family History All Active Problems (Updated 10/09/22 @ 23:39 by Ethan Smith DO) Closed left hip fracture (Acute) Dementia (Acute) Fall (Acute) Laceration of scalp (Acute) Post-nasal drip (Acute) Pneumonia (Acute) Abnormal finding on CT scan (Acute) Excessive salivation (Acute) Dyspepsia (Acute) Laceration (Acute) Anxiety (Acute) Annual physical exam (Acute) Oral thrush (Acute) Hyperkalemia (Acute) Nocturnal hypoxemia (Chronic) Hospital discharge follow-up (Acute) Medicare annual wellness visit, subsequent (Acute) Shortness of breath (Acute) Chronic obstructive pulmonary disease (Chronic) Encounter for immunization (Acute) Weight loss (Acute) Anorexia (Acute) Left sciatic notch pain (Acute) Depression (Chronic) Right hip pain (Acute) LLQ pain (Acute) Vitamin B 12 deficiency (Chronic) History of tonsillectomy (Chronic) History of colonoscopy (Chronic 12/31/14) History of adenoidectomy (Chronic) Restless legs syndrome (Chronic) Parkinson disease (Chronic) Osteoporosis (Chronic) Menopausal and postmenopausal disorder (Chronic) Hypothyroidism (acquired) (Chronic) Hyperlipidemia (Chronic) Gastroesophageal reflux (Chronic) Dysphagia (Chronic) History of colonic polyps (Chronic) Medical History Annual physical exam Anorexia Chronic obstructive pulmonary disease Depression Dysphagia Encounter for immunization Encounter for removal of sutures Gastroesophageal reflux History of colonic polyps Hospital discharge follow-up Hyperkalemia Hyperlipidemia Hypothyroidism (acquired) Laceration Left sciatic notch pain LLQ pain Medicare annual wellness visit, subsequent Menopausal and postmenopausal disorder NOS Nocturnal hypoxemia Oral thrush Osteoporosis Parkinson disease cervical dystonia Restless legs syndrome Right hip pain Shortness of breath Vitamin B 12 deficiency Weight loss Surgical History History of adenoidectomy History of colonoscopy (12/31/14) Dr Dumont [facility] History of tonsillectomy Family History Mother Malignant neoplasm of breast 53 Unknown Asthma Essential tremor Father , 72 Malignant neoplasm of prostate Social History Smoking Status: Never smoker Alcohol Intake Frequency: a few times a month Substance Use: does not use Exam Narrative Narrative: Narrative: General Limitations: other General appearance: Present alert Expanded Head Head image: 1. 1 cm laceration Eye Eye: Present PERRL and EOMI ENT ENT: Present normal oropharynx and mucous membranes moist Neck Neck: Present other (Placed in c-collar) Respiratory Respiratory: Present normal lung sounds bilaterally; Absent stridor Cardiovascular Cardiovascular: Present regular rate and normal rhythm Adbominal Abdominal: Present soft and normal bowel sounds; Absent tenderness Extremities Extremities: Present normal capillary refill Expanded Lower Extremity Hip/Pelvis: Present tenderness; Absent erythema or shortening Neurological Neurological: Present alert Psychiatric Psychiatric: Present other (Unable to assess due to patient's baseline dementia) Skin Skin: Present warm (WNL) and normal color Course Course Course Narrative: She was evaluated status post fall with a laceration to her left head. Area thoroughly cleansed and irrigated and [address] of the head and cervical spine were obtained with image reviewed myself which are negative for any acute pathology. Patient was cleared and cervical collar with regular range of motion. CT of the pelvis was obtained with image reviewed myself which shows a left femoral neck fracture. Case was discussed with orthopedic surgery who recommends admission to the hospital service. Labs are obtained are unremarkable. Chest x-ray obtained with image reviewed myself with no acute findings. Laceration to the left side of her scalp that was stapled shut after being thoroughly cleansed and irrigated. Patient was given IV morphine for her discomfort. Tetanus shot administered. Case discussed with hospitalist who has agreed to admit the patient. Consultations Consultation #1: Case discussed with orthopedic surgeon, Dr. Thomson, who recommends the patient be admitted to the hospitalist service and made n.p.o. after midnight for planned surgical correction tomorrow Time: 22:48 Consultation #2: Case discussed with hospitalist who has agreed to admit the patient. Time: 23:04 Vital Signs Vital signs: Vital Signs Temperature 98.2 F 10/09/22 20:51 Pulse Rate 5 L 10/09/22 20:51 Respiratory Rate 17 10/09/22 20:51 Blood Pressure 119/86 10/09/22 20:51 Pulse Oximetry (%) 97 10/09/22 20:51 Oxygen Delivery Method Room Air 10/09/22 20:51 Temperature 98.2 F 10/09/22 20:51 Pulse Rate 77 10/09/22 22:31 Respiratory Rate 17 10/09/22 20:51 Blood Pressure 134/79 10/09/22 22:31 Pulse Oximetry (%) 100 10/09/22 22:31 Oxygen Delivery Method Room Air 10/09/22 20:51 Procedures Laceration Laceration 1: Site: scalp Side (If applicable): left Length of wound repaired (cm): 1 Description: Present stellate Depth: simple, single layer Local Anesthetic: none Pre-repair: wound explored, irrigated extensively and deep structures intact Skin layer closed with: filomena Number of sutures: 3 MDM MDM Narrative Medical decision making narrative: Narrative: Differential Diagnosis Differential Diagnosis: Intracranial bleed, laceration, hip fracture, cervical fracture Medical Records Medical records reviewed: Yes I reviewed the patient's medical records. Lab Data Lab results reviewed: Yes I reviewed the patient's lab results. 10/09/22 21:42 Labs: Lab Results 10/09/22 10/09/22 10/09/22 Range/Units 21:35 21:42 21:42 WBC 10.9 (4.5-11.0) K/mcL RBC 3.98 (3.59-5.38) M/mcL Hgb 11.7 (11.2-15.7) g/dL Hct 36.6 (34.1-44.9) % POC Hct 34.0 L (36-48) MCV 92.0 (80.0-100.0) fL MCH 29.4 (26.0-34.0) pg MCHC 32.0 (31.0-36.0) g/dL RDW 12.9 (11.5-14.5) % Plt Count 294 (140-440) K/mcL MPV 10.7 (8.8-12.5) fL Immature Gran % (Auto) 0.6 H (0.0-0.5) % Neut % (Auto) 60.9 (38.0-78.0) % Lymph % (Auto) 22.6 (15.5-49.0) % [place] % (Auto) 8.6 (1.0-12.0) % Eos % (Auto) 6.8 (0.0-7.0) % Baso % (Auto) 0.5 (0.0-2.0) % Lymph # (Auto) 2.45 (1.50-4.80) K/mcL [place] # (Auto) 0.93 H (0.10-0.90) K/mcL Eos # (Auto) 0.74 H (0.00-0.70) K/mcL Baso # (Auto) 0.05 (0.00-0.30) K/mcL Immature Gran # 0.07 H (0.00-0.05) K/mcl Absolute Neutrophils 6.62 (1.80-8.00) K/mcL POC PT 12.5 (11.9-14.5) POC INR 1.0 (0.8-1.2) POC Sodium 139 (133-145) POC Potassium 4.3 (3.3-5.1) POC Chloride 106 (96-108) POC Total CO2 28.0 (22-30) POC BUN 33 H (6-20) POC Creatinine 0.9 (0.6-1.2) POC Glucose 103 (70-105) POC WB Ioniz Calcium 1.00 L (1.16-1.32) Radiology Data Radiology results reviewed: Yes I reviewed the patient's radiology results. Radiology results narrative: ET of the head and cervical spine obtained with image reviewed myself, no acute findings CT of the pelvis obtained with image reviewed myself which shows a left femoral neck fracture Core Measures AMI Core Measures Followed: Yes Discharge Plan Patient/Caregiver Discharge Instructions Pt seen by [employer]/PA only: No Clinical Impression: Closed left hip fracture, Dementia, Fall, Laceration of scalp Patient Disposition: Xfer As Outpt/Obs ([facility]) Condition: Fair Follow up with: Zachary Hebert MD [Primary Care Provider] - Prescriptions: No Action mirtazapine 30 mg tablet 30 mg PO QHS Qty: 90 1RF Trelegy Ellipta 200-62.5-25 mcg blister with device 1 ea PO QDAY Qty: 60 2RF levothyroxine 50 mcg tablet See Rx Instructions .ROUTE .COMPLEX Qty: 90 1RF Dose Instruction: Take 1 tablet by mouth once daily Rx Instructions: Take 1 tablet by mouth once daily omeprazole 20 mg capsule,delayed release(DR/EC) 20 mg PO BID Qty: 180 1RF lorazepam [Ativan] 1 mg tablet 1 mg PO .COMPLEX Qty: 90 0RF Patient Comments: 90 days Rx Instructions: 1 mg PO in AM, 1 mg at noon, 1 mg at evening; *Must last 30 days. aspirin 81 mg tablet,delayed release (DR/EC) 81 mg PO QPM sennosides [Senna Laxative] 8.6 mg tablet 17.2 mg PO QNOON calcium citrate 250 mg calcium tablet 500 mg PO QAM Rx Instructions: [address] Hebert carbidopa-levodopa [Sinemet] 25-100 mg tablet 2 tab PO QID polyethylene glycol 3350 [Miralax] 17 gram powder in packet 17 g PO QPM Patient Comments: mix one capful (17 grams) in 8 oz of water or liquid of choice and drink once to twice daily as needed for constipation. Rx Instructions: mix into 4-8 oz. of any hot/cold/room temp. beverage and drink immediately cholecalciferol (vitamin D3) 1,000 unit capsule 2,000 unit PO QNOON Rx Instructions: administer with meals
[2022-10-09] MEDS ORDERED: DIPH,PERTUSS(ACELL),TET VAC/PF 0.5 ML SYRINGE IM ONE (21:04)
[2022-10-09 21:39] LABS: POC Creatinine 0.9 (0.6-1.2); POC Potassium 4.3 (3.3-5.1)
[2022-10-09 21:44] LABS: POC Pro Time 12.5 (11.9-14.5)
[2022-10-09 22:10] LABS: Basophils # (Auto) 0.05 K/mcL (0.00-0.30); Basophils % (Auto) 0.5 % (0.0-2.0); Eosinophils # (Auto) 0.74 K/mcL (0.00-0.70); Eosinophils % (Auto) 6.8 % (0.0-7.0); Hematocrit 36.6 % (34.1-44.9); Hemoglobin 11.7 g/dL (11.2-15.7); Lymphocytes # (Auto) 2.45 K/mcL (1.50-4.80); Lymphocytes % (Auto) 22.6 % (15.5-49.0); Mean Platelet Volume 10.7 fL (8.8-12.5); Monocytes # (Auto) 0.93 K/mcL (0.10-0.90); Monocytes % (Auto) 8.6 % (1.0-12.0); Neutrophils % (Auto) 60.9 % (38.0-78.0); Platelet Count 294 K/mcL (140-440); RBC 3.98 M/mcL (3.59-5.38); Red Cell Distribution Width 12.9 % (11.5-14.5); WBC 10.9 K/mcL (4.5-11.0)
[2022-10-09] MEDS ORDERED: morphine 2 MG/ML VIAL IV ONE (22:49)
--- NOTE | 2022-10-09 23:18 | Internal Med History&Physical ---
HPI History of Present Illness Patient information: Note initiated : 10/09/22 at 11:12 pm Service Date, if different from initiated Date: [] Patient: Kavitha Tristan 82 y/o F admitted on for fall. Chief Complaint: [] History of present illness: Ms. Tristan is a 82 year old female with a history of dementia, hyperlipidemia, COPD, Hypothyroid, GERD, dysphagia who was brought to the emergency department after she had a ground-level fall at home and hit her head. In the emergency department, the patient was found to have a left femoral neck fracture and a minor laceration on her head that was closed with filomena in the ED. The patient will be admitted for surgical correction of the hip fracture. Review of systems Constitutional: no fever, fatigue, or weight loss Eyes: no vision changes or pain Cardiovascular: no chest pain, no palpitations Respiratory: no cough or dyspnea Gastrointestinal: no abdominal pain, no nausea, vomiting, or diarrhea Genitourinary: no dysuria or difficulty voiding Musculoskeletal: Left hip pain with movement. Integumentary: Scalp laceration Neurological: no focal weakness or numbness Psychiatric: no anxiety or depression Physical exam Head: Atraumatic, normal inspection. Eyes: normal appearance, no scleral icterus. Neck: full ROM Respiratory: no respiratory distress. Cardiovascular: normal rate and rhythm, S1, S2. GI/Abdominal: soft, nontender, no guarding. Extremities: External rotation of the left lower extremity consistent with femoral neck fracture. Neurological: CN II-XII intact, intact motor, intact sensation. Psychiatric: normal mood. Skin: Scalp laceration closed with filomena PFSH PFSH All Active Problems (Updated 10/09/22 @ 23:39 by Ethan Smith DO) Closed left hip fracture (Acute) Dementia (Acute) Fall (Acute) Laceration of scalp (Acute) Post-nasal drip (Acute) Pneumonia (Acute) Abnormal finding on CT scan (Acute) Excessive salivation (Acute) Dyspepsia (Acute) Laceration (Acute) Anxiety (Acute) Annual physical exam (Acute) Oral thrush (Acute) Hyperkalemia (Acute) Nocturnal hypoxemia (Chronic) Hospital discharge follow-up (Acute) Medicare annual wellness visit, subsequent (Acute) Shortness of breath (Acute) Chronic obstructive pulmonary disease (Chronic) Encounter for immunization (Acute) Weight loss (Acute) Anorexia (Acute) Left sciatic notch pain (Acute) Depression (Chronic) Right hip pain (Acute) LLQ pain (Acute) Vitamin B 12 deficiency (Chronic) History of tonsillectomy (Chronic) History of colonoscopy (Chronic 12/31/14) History of adenoidectomy (Chronic) Restless legs syndrome (Chronic) Parkinson disease (Chronic) Osteoporosis (Chronic) Menopausal and postmenopausal disorder (Chronic) Hypothyroidism (acquired) (Chronic) Hyperlipidemia (Chronic) Gastroesophageal reflux (Chronic) Dysphagia (Chronic) History of colonic polyps (Chronic) Medical History Annual physical exam Anorexia Chronic obstructive pulmonary disease Depression Dysphagia Encounter for immunization Encounter for removal of sutures Gastroesophageal reflux History of colonic polyps Hospital discharge follow-up Hyperkalemia Hyperlipidemia Hypothyroidism (acquired) Laceration Left sciatic notch pain LLQ pain Medicare annual wellness visit, subsequent Menopausal and postmenopausal disorder NOS Nocturnal hypoxemia Oral thrush Osteoporosis Parkinson disease cervical dystonia Restless legs syndrome Right hip pain Shortness of breath Vitamin B 12 deficiency Weight loss Surgical History History of adenoidectomy History of colonoscopy (12/31/14) Dr Dumont History of tonsillectomy Family History Mother Malignant neoplasm of breast 53 Unknown Asthma Essential tremor Father , 72 Malignant neoplasm of prostate Social History marital status: education level: college occupational status: retired other: 4 children/3 ext and 10 bio smoking status: Former smoker alcohol intake frequency: a few times a month substance use type: does not use MEDS/ALLERGIES Home Medications and Allergies Home Medications Medication Instructions Recorded Confirmed Type aspirin 81 mg tablet,delayed 81 mg PO QPM 02/12/15 10/10/22 History release sennosides 8.6 mg tablet (Senna 17.2 mg PO QNOON 06/22/17 10/10/22 History Laxative) carbidopa 25 mg-levodopa 100 mg 2 tab PO QID 04/14/19 10/10/22 History tablet (Sinemet) calcium citrate 500 mg PO QAM 10/04/19 10/10/22 History cholecalciferol (vitamin D3) 50 2,000 unit PO QNOON 10/08/20 10/10/22 History mcg (2,000 unit) capsule polyethylene glycol 3350 17 gram 17 g PO QPM 10/08/20 10/10/22 History oral powder packet (Miralax) mirtazapine 30 mg tablet 30 mg PO QHS #90 tabs 04/21/22 10/10/22 Rx fluticasone fur. 200 mcg-umeclid 1 ea PO QDAY #60 ea 07/16/22 10/10/22 Rx 62.5 mcg-vilant 25 mcg inhalat.powder (Trelegy Ellipta) levothyroxine 50 mcg tablet See Rx Instructions .Route 07/21/22 10/10/22 Rx .COMPLEX #90 tabs omeprazole 20 mg capsule,delayed 20 mg PO BID #180 caps 07/30/22 10/10/22 Rx release lorazepam 1 mg tablet (Ativan) 1 mg PO .COMPLEX #90 tabs 09/09/22 10/10/22 Rx Allergies Allergy/AdvReac Type Severity Reaction Status Date / Time Banana AdvReac Unknown Nausea Verified 09/28/22 13:33 EXAM Constitutional Vitals: Temp Pulse Resp BP Pulse Ox O2 Del Method 98.2 F 77 17 134/79 100 Room Air 10/09/22 20:51 10/09/22 22:31 10/09/22 20:51 10/09/22 22:31 10/09/22 22:31 10/09/22 20:51 DATA Data Completed and Pending Labs: Labs from last 24 hours 10/09/22 10/09/22 10/09/22 21:42 21:42 21:35 WBC 10.9 RBC 3.98 Hgb 11.7 Hct 36.6 POC Hct 34.0 L MCV 92.0 MCH 29.4 MCHC 32.0 RDW 12.9 Plt Count 294 MPV 10.7 Immature Gran % (Auto) 0.6 H Neut % (Auto) 60.9 Lymph % (Auto) 22.6 [place] % (Auto) 8.6 Eos % (Auto) 6.8 Baso % (Auto) 0.5 Lymph # (Auto) 2.45 [place] # (Auto) 0.93 H Eos # (Auto) 0.74 H Baso # (Auto) 0.05 Immature Gran # 0.07 H Absolute Neutrophils 6.62 POC PT 12.5 POC INR 1.0 POC Sodium 139 POC Potassium 4.3 POC Chloride 106 POC Total CO2 28.0 POC BUN 33 H POC Creatinine 0.9 POC Glucose 103 POC WB Ioniz Calcium 1.00 L A/P Narrative A/P Narrative: Assessment: 82 year old female with a history of dementia, hyperlipidemia, COPD, Hypothyroid, GERD, dysphagia admitted for a left femoral neck fracture secondary to a ground level fall at home. The patient also suffered a minor laceration to her head that required filomena. #Left femoral neck fracture #Head laceration s/p filomena #Parkinson disease #Dysphagia #Dementia #Hyperlipidemia #Hypothyroidism #GERD #Expansile calvarial lesion probably benign. Plan -Admit to for urgent surgical hip fracture correction tomorrow. -Analgesics. -Orthopedic surgery consult. -Right hip x-rays per orthopedic surgery. -NPO after midnight. -PT and OT consult. -Speech therapy consult for dysphagia. -Home medication reconciliation, continue important medications. -Follow-up CT head in about 12 months is within the patient's goals of care. -DVT prophylaxis: SCDs until surgery then orthopedic preference for pharmacologic DVT prophylaxis. -Disposition: Anticipate the patient will need low intensity rehab at discharge. Plan of Treatment: Plan is for left hip hemiarthroplasty to take place emergently with Dr. Thomson orthopedic surgeon and Kuldeep IVAN. Surgical risk were explained to the patient and family including but not limited to: pain , bleeding, infection, injury to adjacent structures, implant failure, need for further surgery, stroke, cardiac complication, pulmonary complications, anesthesia reactions and . patient and family verbalize understanding and wish to proceed. Time Spent With Patient Time: Total time spent is greater than 50% in coordination of care (as documented) at patient's floor/unit and/or counseling patient:
[2022-10-10] MEDS ORDERED: oxyCODONE HCL 5 MG TABLET PO PRN (00:02)
[2022-10-10] MEDS ORDERED: 0.9 % SODIUM CHLORIDE 1,000 ML IV SCH (00:02)
[2022-10-10] MEDS ORDERED: ONDANSETRON 4 MG/2 ML VIAL IV PRN (00:02)
[2022-10-10] MEDS ORDERED: HYDROmorphone 0.5 MG/0.5 ML SYRINGE IV PRN (00:02)
[2022-10-10] MEDS ORDERED: ALBUTEROL SULFATE 2.5 MG/3 ML NEBULIZER NEB PRN (00:02)
[2022-10-10] MEDS ORDERED: ACETAMINOPHEN 1,000 MG/100 ML BAG IV ONE ×2 (00:44→10:54)
[2022-10-10] MEDS: ACETAMINOPHEN 1,000 MG/100 ML BAG IV SCH ×3 (00:50→19:28)
[2022-10-10] MEDS ORDERED: HYDROmorphone 0.5 MG/0.5 ML SYRINGE ONE (02:35)
--- NOTE | 2022-10-10 06:02 | XRay Report ---
INDICATION: pre-op TECHNIQUE: AP portable semiupright chest x-ray COMPARISON: Previous examination dated 04/13/2022 FINDINGS: Lungs:Bilateral hyperexpansion and probable COPD. No focal pulmonary parenchymal infiltrate. Patient has a history of trauma. No evidence for pulmonary contusion Heart, vascular:Heart size is normal. No evidence for congestive heart failure Mediastinum, amy:No mediastinal widening. No hilar mass Pleura:No hemothorax or pneumothorax. No pleural fluid Skeletal:No detectable rib fractures. IMPRESSION: 1. Probable COPD 2. No acute or focal abnormality Interpreted and Authenticated by: Gen Gonzalez 10/10/22
[2022-10-10] MEDS: 0.9 % SODIUM CHLORIDE 10 ML SYRINGE IV SCH ×3 (06:06→21:49)
--- NOTE | 2022-10-10 06:33 | Cat Scan Report ---
INDICATION: pain. Left hip pain TECHNIQUE: Axial images through the pelvis. Sagittal and coronal reformatted images COMPARISON: None. FINDINGS: Examination was initially interpreted by [facility]. Acute left subcapital hip fracture. There is displacement with foreshortening and varus angulation deformity. Right hip is negative. Pelvis is negative. No pubic ramus fracture. Sacrum and coccyx are negative. No intra or extra pelvic hematoma. No hemoperitoneum. Severe degenerative disc disease at L4-5. IMPRESSION: Acute left subcapital hip fracture with displacement and angulation Interpreted and Authenticated by: Gen Gonzalez 10/10/22
--- NOTE | 2022-10-10 06:57 | Cat Scan Report ---
INDICATION: fall COMPARISON: Previous CT scans dated 09/15/2022, 01/24/2022. Previous MRI scan dated 02/11/2022 TECHNIQUE: Axial noncontrast-enhanced images through the brain. Sagittally and coronally reformatted images. FINDINGS: Examination was initially interpreted by [facility] Cerebral hemispheres:Negative. No intra-axial abnormality. No intra-axial hematoma. No localized mass effect.Brain volume is within normal limits for age. Periventricular white matter is negative without significant attenuation abnormality. Brainstem and cerebellum:No intra-axial abnormality Extra-axial:No acute hemorrhage. No subdural or epidural hematoma. No subarachnoid hemorrhage. Basilar cisterns are normal Calvarial:No calvarial fracture. There is an expansile lytic abnormality involving the left parietal bone at the vertex and midline. There is bony remodeling consistent with a slow growing process. Malignant-type, aggressive bone destruction is not identified. This lesion is stable since 01/24/2022. This measures 3.2 x 3.0 x 1.5 cm the stability of this lesion for 9 months is consistent with a benign lesion. This is probably a large pacchionian granulation or venous eng. MR imaging characteristics are not typical of intraosseous meningioma or hemangioma. Appearance and time course are not typical for an aggressive metastatic lesion. [address] follow-up recommended. There is mild inflammatory disease within sphenoid sinus with dependent fluid Soft tissue, orbits, sinuses:Orbits and visualized facial soft tissues and paranasal sinuses are negative IMPRESSION: 1. No posttraumatic abnormality 2. Expansile calvarial lesion. This is probably a benign process such as a large pacchionian granulation or venous eng. Need CT follow-up recommended 3. Sphenoid sinusitis The exam was performed using radiation dose optimization techniques including, but not limited to, automated exposure control, adjustment of the mA and/or kV according to patient size and use of iterative reconstruction technique. Interpreted and Authenticated by: Gen Gonzalez 10/10/22
[2022-10-10] MEDS: DOCUSATE SODIUM 100 MG CAPSULE PO SCH ×2 (07:02→21:03)
--- NOTE | 2022-10-10 07:04 | Cat Scan Report ---
INDICATION: fall COMPARISON: None. TECHNIQUE: Axial thin section images through the cervical spine. Sagittally and coronally reformatted images. The exam was performed using radiation dose optimization techniques including, but not limited to, automated exposure control, adjustment of the mA and/or kV according to patient size and use of iterative reconstruction technique. FINDINGS: Examination was initially interpreted by [facility] Vertebral bodies, spinous processes:No vertebral body or spinous process fracture. No acute abnormality. Alignment is anatomic without anterolisthesis Normal odontoid process. No fracture. Occipital condyles and C1 are negative. No atlantoaxial subluxation. Facets:No perched or locked facet. No facet complex fracture. Multilevel degenerative disc disease Disc spaces:Multilevel degenerative disc disease Temporal bones:Negative. No basilar skull fracture. There is mild fluid within the sphenoid sinus consistent with sinusitis Cervical soft tissues:Negative. No prevertebral soft tissue swelling. No focal soft tissue mass or acute abnormality Lung apices:No pneumothorax. No pulmonary contusion. IMPRESSION: 1. Degenerative disc disease and facet arthropathy 2. No acute fracture 3. Mild sphenoid sinusitis Interpreted and Authenticated by: Gen Gonzalez 10/10/22
--- NOTE | 2022-10-10 07:08 | Orthopedic History & Physical ---
HPI History of Present Illness Patient information: Note initiated : 10/10/22 at 7:08 am Service Date, if different from initiated Date: [] Patient: Kavitha Tristan 82 y/o F admitted on 10/09/22 for fall. Chief Complaint: [left hip pain s/p fall ] Chief complaint: left hip pain History of present illness: Ms. Tristan is a 82 year old Female with hx of dementia who was ambulating without her walker in the kitchen when she suffered a mechanical fall landing on her left hip. imaging obtained at the [facility] reveals a displaced subcapital femoral neck fracture. Alix Salgado orthopedic surgeon was consulted for treatment optio ns Review of Systems All systems: reviewed and no additional remarkable complaints except as stated PFSH PFSH All Active Problems (Updated 10/09/22 @ 23:39 by Ethan Smith DO) Closed left hip fracture (Acute) Dementia (Acute) Fall (Acute) Laceration of scalp (Acute) Post-nasal drip (Acute) Pneumonia (Acute) Abnormal finding on CT scan (Acute) Excessive salivation (Acute) Dyspepsia (Acute) Laceration (Acute) Anxiety (Acute) Annual physical exam (Acute) Oral thrush (Acute) Hyperkalemia (Acute) Nocturnal hypoxemia (Chronic) Hospital discharge follow-up (Acute) Medicare annual wellness visit, subsequent (Acute) Shortness of breath (Acute) Chronic obstructive pulmonary disease (Chronic) Encounter for immunization (Acute) Weight loss (Acute) Anorexia (Acute) Left sciatic notch pain (Acute) Depression (Chronic) Right hip pain (Acute) LLQ pain (Acute) Vitamin B 12 deficiency (Chronic) History of tonsillectomy (Chronic) History of colonoscopy (Chronic 12/31/14) History of adenoidectomy (Chronic) Restless legs syndrome (Chronic) Parkinson disease (Chronic) Osteoporosis (Chronic) Menopausal and postmenopausal disorder (Chronic) Hypothyroidism (acquired) (Chronic) Hyperlipidemia (Chronic) Gastroesophageal reflux (Chronic) Dysphagia (Chronic) History of colonic polyps (Chronic) Medical History Annual physical exam Anorexia Chronic obstructive pulmonary disease Depression Dysphagia Encounter for immunization Encounter for removal of sutures Gastroesophageal reflux History of colonic polyps Hospital discharge follow-up Hyperkalemia Hyperlipidemia Hypothyroidism (acquired) Laceration Left sciatic notch pain LLQ pain Medicare annual wellness visit, subsequent Menopausal and postmenopausal disorder NOS Nocturnal hypoxemia Oral thrush Osteoporosis Parkinson disease cervical dystonia Restless legs syndrome Right hip pain Shortness of breath Vitamin B 12 deficiency Weight loss Surgical History History of adenoidectomy History of colonoscopy (12/31/14) Dr Dumont [place] History of tonsillectomy Family History Mother Malignant neoplasm of breast 53 Unknown Asthma Essential tremor Father , 72 Malignant neoplasm of prostate Social History marital status: education level: college occupational status: retired other: 4 children/3 ext and 10 bio smoking status: Former smoker alcohol intake frequency: a few times a month substance use type: does not use MEDS/ALLERGIES Home Medications and Allergies Home Medications Medication Instructions Recorded Confirmed Type aspirin 81 mg tablet,delayed 81 mg PO QPM 02/12/15 10/10/22 History release sennosides 8.6 mg tablet (Senna 17.2 mg PO QNOON 06/22/17 10/10/22 History Laxative) carbidopa 25 mg-levodopa 100 mg 2 tab PO QID 04/14/19 10/10/22 History tablet (Sinemet) calcium citrate 500 mg PO QAM 10/04/19 10/10/22 History cholecalciferol (vitamin D3) 50 2,000 unit PO QNOON 10/08/20 10/10/22 History mcg (2,000 unit) capsule polyethylene glycol 3350 17 gram 17 g PO QPM 10/08/20 10/10/22 History oral powder packet (Miralax) mirtazapine 30 mg tablet 30 mg PO QHS #90 tabs 04/21/22 10/10/22 Rx fluticasone fur. 200 mcg-umeclid 1 ea PO QDAY #60 ea 07/16/22 10/10/22 Rx 62.5 mcg-vilant 25 mcg inhalat.powder (Trelegy Ellipta) levothyroxine 50 mcg tablet See Rx Instructions .Route 07/21/22 10/10/22 Rx .COMPLEX #90 tabs omeprazole 20 mg capsule,delayed 20 mg PO BID #180 caps 07/30/22 10/10/22 Rx release lorazepam 1 mg tablet (Ativan) 1 mg PO .COMPLEX #90 tabs 09/09/22 10/10/22 Rx Allergies Allergy/AdvReac Type Severity Reaction Status Date / Time Banana AdvReac Unknown Nausea Verified 09/28/22 13:33 Physical Examination Narrative Narrative: Narrative: Results Labs 10/09/22 21:42 Labs: Abnormal lab results 10/09/22 10/09/22 Range/Units 21:35 21:42 POC Hct 34.0 L (36-48) Immature Gran % (Auto) 0.6 H (0.0-0.5) % Day # (Auto) 0.93 H (0.10-0.90) K/mcL Eos # (Auto) 0.74 H (0.00-0.70) K/mcL Immature Gran # 0.07 H (0.00-0.05) K/mcl POC BUN 33 H (6-20) POC WB Ioniz Calcium 1.00 L (1.16-1.32) H & H 10/09/22 Range/Units 21:42 Hgb 11.7 (11.2-15.7) g/dL Hct 36.6 (34.1-44.9) % All other labs normal. A/P Assessment and plan (1) Closed left hip fracture: Status: Acute Qualifiers: Encounter type: initial encounter Qualified Code(s): S72.002A - Fracture of unspecified part of neck of left femur, initial encounter for closed fracture Plan On exam patient is resting comfortable but arousable. She is alert and oriented to person and place, answers questions appropriately. pupils are JUAN PABLO with intact ocular motion. CN 2-12 are grossly intact. She has some general scalp tenderness, neck is supple, chest, abd and right side pelvis are non-tender to palpation. Lungs are equal and clear bilaterally, heart is normal rate and rhythm. At the left pelvis and hip are there is tenderness to palpation and with any ROM. left LLE is internally rotated and shortened. Narrative A/P Narrative: Assessment: 82 yo female who sustained a femoral neck fracture after ground level mechanical fall. Plan: options were presented to the patient and her family including non surgical and surgical options. non surgical consisting of bracing and pain medication carries the risk of loss of ROM, ambulation and increased pain. sugical option of left hip hemiarthroplasty. Plan of Treatment: Plan is for left hip hemiarthroplasty to take place emergently with Dr. Thomson orthopedic surgeon and Kuldeep IVAN. Surgical risk were explained to the patient and family including but not limited to: pain , bleeding, infection, injury to adjacent structures, implant failure, need for further surgery, stroke, cardiac complication, pulmonary complications, anesthesia reactions and . patient and family verbalize understanding and wish to proceed. Time Spent With Patient Time: Total time spent is greater than 50% in coordination of care (as documented) at patient's floor/unit and/or counseling patient:
[2022-10-10] MEDS ORDERED: KETOROLAC 15 MG/ML VIAL IV PRN (07:32)
--- NOTE | 2022-10-10 07:33 | XRay Report ---
INDICATION: surgical planning hemiarthroplasty TECHNIQUE: AP pelvis and crosstable lateral left hip COMPARISON: None. FINDINGS: Subcapital left hip fracture. There is displacement with foreshortening and varus angulation deformity. Pelvis is negative. No fracture. There is significant degenerative joint disease in the right hip with marked joint space narrowing. IMPRESSION: Left subcapital hip fracture as above Interpreted and Authenticated by: Gen Gonzalez 10/10/22
[2022-10-10] MEDS ORDERED: ceFAZolin 1 GM VIAL IV SCH (09:52)
[2022-10-10] MEDS ORDERED: PROPOFOL 200 MG/20 ML VIAL IV ONE (10:00)
[2022-10-10] MEDS ORDERED: KETAMINE 50 MG/ML Syringe (ANEST) IV ONE (10:00)
[2022-10-10] MEDS ORDERED: DEXAMETHASONE 10 MG/ML VIAL ONE (10:00)
[2022-10-10] MEDS ORDERED: fentaNYL 100 MCG/2 ML VIAL IV ONE (10:00)
[2022-10-10] MEDS ORDERED: MAGNESIUM SULFATE 2 GM/50 ML BAG IV ONE (10:00)
[2022-10-10] MEDS ORDERED: ONDANSETRON 4 MG/2 ML VIAL ONE (10:00)
[2022-10-10] MEDS ORDERED: LIDOCAINE HCL/PF 100 MG/5 ML SYRINGE IV ONE (10:00)
[2022-10-10] MEDS ORDERED: TRANEXAMIC ACID 1,000 MG/10 ML VIAL ONE (10:00)
[2022-10-10] MEDS ORDERED: GLYCOPYRROLATE 0.2 MG/ML VIAL IV ONE (10:00)
[2022-10-10] MEDS ORDERED: MEPERIDINE 25 MG/ML VIAL IV PRN (10:54)
[2022-10-10] MEDS ORDERED: LABETALOL 5 MG/ML ML IV PRN (10:54)
[2022-10-10] MEDS ORDERED: METHOCARBAMOL 1,000 MG/10 ML VIAL IV PRN (10:54)
[2022-10-10] MEDS ORDERED: METOPROLOL TARTRATE 5 MG/5 ML VIAL IV PRN (10:54)
[2022-10-10] MEDS ORDERED: NALOXONE HCL 0.4 MG/ML VIAL IV PRN (10:54)
[2022-10-10] MEDS ORDERED: LACTATED RINGERS 250 ML IV PRN (10:54)
[2022-10-10] MEDS ORDERED: fentaNYL 100 MCG/2 ML VIAL IV PRN (10:54)
[2022-10-10] MEDS ORDERED: IPRATROPIUM/ALBUTEROL 3 ML AMPUL.NEB NEB PRN (10:54)
[2022-10-10] MEDS ORDERED: LACTATED RINGERS 1,000 ML IV SCH (11:00)
--- NOTE | 2022-10-10 11:19 | General Surgery Procedure Note ---
Date of procedure: Note initiated : 10/10/22 at 11:18 am Service Date, if different from initiated Date: [] Pre-op diagnosis: left hip femoral neck fracture Post-op diagnosis: same Procedure: left hip hemiarthroplasty Findings: femoral neck fracture Anesthesia: spinal Surgeon: Gen Thomson [employer] Meter Setter: Gagandeep Chamorro Estimated blood loss: 250 Pathology: none sent Condition: stable Disposition: PACU
--- NOTE | 2022-10-10 11:20 | Discharge Plan ---
Discharge Instructions - [facility] Patient Instructions Total Hip Protocol: Follow activity instructions as provided by Physical Therapy. Dressing Care: May shower in 2 days Discharge Plan Patient/Caregiver Discharge Instructions Activity: ambulate only with your walker and as per physical therapy Diet: Regular Diet Prescriptions: No Action mirtazapine 30 mg tablet 30 mg PO QHS Qty: 90 1RF Trelegy Ellipta 200-62.5-25 mcg blister with device 1 ea PO QDAY Qty: 60 2RF levothyroxine 50 mcg tablet See Rx Instructions .ROUTE .COMPLEX Qty: 90 1RF Dose Instruction: Take 1 tablet by mouth once daily Rx Instructions: Take 1 tablet by mouth once daily omeprazole 20 mg capsule,delayed release(DR/EC) 20 mg PO BID Qty: 180 1RF lorazepam [Ativan] 1 mg tablet 1 mg PO .COMPLEX Qty: 90 0RF Patient Comments: 90 days Rx Instructions: 1 mg PO in AM, 1 mg at noon, 1 mg at evening; *Must last 30 days. aspirin 81 mg tablet,delayed release (DR/EC) 81 mg PO QPM sennosides [Senna Laxative] 8.6 mg tablet 17.2 mg PO QNOON calcium citrate 250 mg calcium tablet 500 mg PO QAM Rx Instructions: [address] Hebert carbidopa-levodopa [Sinemet] 25-100 mg tablet 2 tab PO QID polyethylene glycol 3350 [Miralax] 17 gram powder in packet 17 g PO QPM Patient Comments: mix one capful (17 grams) in 8 oz of water or liquid of choice and drink once to twice daily as needed for constipation. Rx Instructions: mix into 4-8 oz. of any hot/cold/room temp. beverage and drink immediately cholecalciferol (vitamin D3) 1,000 unit capsule 2,000 unit PO QNOON Rx Instructions: administer with meals Follow Up Plan Follow up with: Zachary Hebert MD [Primary Care Provider] - Patient Disposition: [facility] Plan of Treatment: Plan is for left hip hemiarthroplasty to take place emergently with Dr. Thomson orthopedic surgeon and Kuldeep IVAN. Surgical risk were explained to the patient and family including but not limited to: pain , bleeding, infection, injury to adjacent structures, implant failure, need for further surgery, stroke, cardiac complication, pulmonary complications, anesthesia reactions and . patient and family verbalize understanding and wish to proceed. Prognosis: Fair Rehab Potential: Good I certify that the patient requires SNF services: Yes Overall status at discharge: patient is progressing back to baseline Discharge Orders: Discharge Order (Routine); Ordered 10/10/22 Ordered By: Gen Thomson Discharge Comment: cc: hip fx s/p jin
[2022-10-10] MEDS ORDERED: FLEETS ADULT ENEMA PR PRN (11:22)
[2022-10-10] MEDS ORDERED: BISACODYL 10 MG SUPP.RECT PR PRN (11:22)
[2022-10-10] MEDS ORDERED: ONDANSETRON 4 MG ODT TABLET SL PRN (11:22)
[2022-10-10] MEDS ORDERED: METHOCARBAMOL 750 MG TABLET PO PRN (11:22)
[2022-10-10] MEDS ORDERED: POLYETHYLENE GLYCOL 3350 17 GM PACKET PO PRN (11:22)
[2022-10-10] MEDS ORDERED: MAGNESIUM HYDROXIDE 30 ML ORAL.SUSP PO PRN (11:22)
[2022-10-10] MEDS ORDERED: morphine 4 MG/ML VIAL IV PRN (11:22)
[2022-10-10] MEDS: LORazepam 1 MG TABLET PO SCH ×4 (11:41→21:03)
[2022-10-10] MEDS: OMEPRAZOLE 20 MG CAPSULE PO SCH ×2 (11:41→21:04)
[2022-10-10] MEDS: CARBIDOPA/LEVODOPA 25/100 TABLET PO SCH ×4 (11:41→21:04)
[2022-10-10] MEDS: LEVOTHYROXINE 50 MCG TABLET PO SCH ×2 (11:41→15:19)
[2022-10-10] MEDS: Fluticasone-Umeclidin-Vilanter [Trelegy Ellipta] PO SCH (11:41)
[2022-10-10] MEDS: 0.9 % SODIUM CHLORIDE 1,000 ML IV SCH ×2 (12:22→21:47)
--- NOTE | 2022-10-10 12:28 | XRay Report ---
INDICATION: surgery TECHNIQUE: AP pelvis. AP and crosstable lateral left hip COMPARISON: Preoperative evaluation dated 10/10/2022 FINDINGS: Status post left hip hemiarthroplasty. Alignment is anatomic. There are skin filomena there is postsurgical soft tissue gas. Pelvis is negative. No pelvic fracture. Sacrum is negative. There is degenerative disease in the right hip IMPRESSION: Status post left hip hemiarthroplasty Interpreted and Authenticated by: Gen Gonzalez 10/10/22
[2022-10-10] MEDS: SENNOSIDES 1 TABLET PO SCH ×2 (13:33→21:03)
[2022-10-10] MEDS: VITAMIN D3 25 MCG TABLET PO SCH (13:33)
[2022-10-10] MEDS: HYDROcodone/APAP 5/325MG TABLET PO PRN (15:19)
[2022-10-10] MEDS: ceFAZolin 1 GM VIAL IV SCH (18:02)
[2022-10-10] MEDS ORDERED: DOCUSATE SODIUM 100 MG CAPSULE PO SCH (21:00)
[2022-10-10] MEDS ORDERED: SENNOSIDES 1 TABLET PO SCH (21:00)
[2022-10-10] MEDS: POLYETHYLENE GLYCOL 3350 17 GM PACKET PO SCH (21:04)
[2022-10-10] MEDS: ASPIRIN 81 MG TAB.CHEW PO SCH (21:04)
[2022-10-10] MEDS: MIRTAZAPINE 15 MG TABLET PO SCH (21:04)
[2022-10-11] MEDS: HYDROcodone/APAP 5/325MG TABLET PO PRN ×2 (00:33→09:16)
[2022-10-11] MEDS: ceFAZolin 1 GM VIAL IV SCH (01:03)
[2022-10-11] MEDS: ACETAMINOPHEN 1,000 MG/100 ML BAG IV SCH ×3 (03:15→19:52)
[2022-10-11] MEDS: 0.9 % SODIUM CHLORIDE 10 ML SYRINGE IV SCH ×3 (05:56→20:30)
[2022-10-11 06:31] LABS: Hematocrit 32.3 % (34.1-44.9)
[2022-10-11 06:32] LABS: Hemoglobin 10.4 g/dL (11.2-15.7)
[2022-10-11] MEDS ORDERED: MELATONIN 3 MG TABLET PO PRN (07:22)
--- NOTE | 2022-10-11 08:26 | Orthopedic Progress Note ---
SUBJECTIVE Subjective Patient information: Note initiated : 10/11/22 at 8:20 am Service Date, if different from initiated Date: [] Patient: Kavitha Tristan 82 y/o F admitted on 10/09/22 for fall. Chief Complaint: s/p left closed hip fx] Pertinent ROS: 10 points reviewed and are negative except where mentioned Constitutional Vitals: Vital Signs Temp Pulse Resp BP Pulse Ox O2 Del Method O2 Flow Rate 98.2 F 78 14 148/69 97 Room Air 0 10/11/22 04:57 10/11/22 04:57 10/11/22 04:57 10/11/22 04:57 10/11/22 04:57 10/11/22 04:57 10/10/22 20:00 Period Temp Pulse Resp BP Sys/Bales Pulse Ox O2 Del Method O2 Flow Rate Last 24 Hr 97.0 F-98.9 F 75-96 8-20 100-168/60-82 95-100 Room Air-Simple Mask 0-6 Intake and Output 10/10/22 10/11/22 10/11/22 19:59 03:59 11:59 Intake Total 1492 1038 540 Output Total 850 200 850 Balance 642 838 -310 Weight 84 lb 9 oz 111 lb 9 oz Intake & Output: Intake & Output 10/10/22 10/11/22 10/11/22 19:59 03:59 11:59 Intake Total 1492 1038 540 Output Total 850 200 850 Balance 642 838 -310 Weight 84 lb 9 oz 111 lb 9 oz Intake: IV 1092 1038 Sodium Chloride 0.9% 1,000 ml @ 892 938 100 mls/hr IV .Q10H [facility] Rx#: [id number] Oral 540 IV - Manual Only 400 Output: Urine Catheter Amount 650 200 850 Estimated Blood Loss 200 Other: Urine Appearance Clear Clear Clear Uretheral (Botello) Clear Urine Color Pale Yellow Yellow Uretheral (Botello) Yellow Urine Odor Normal Normal OBJ DATA Labs 10/11/22 05:40 Labs: Abnormal Lab Results 10/11/22 10/09/22 10/09/22 05:40 21:42 21:35 Hgb 10.4 L Hct 32.3 L POC Hct 34.0 L Immature Gran % (Auto) 0.6 H [place] # (Auto) 0.93 H Eos # (Auto) 0.74 H Immature Gran # 0.07 H POC BUN 33 H POC WB Ioniz Calcium 1.00 L Meds: Medications Hydrocodone Bitart/Acetaminophen (Hydrocodone/Apap 5/325mg Tablet) 0 tab PO Q4HP PRN; Protocol PRN Reason: Per Pain Protocol Last Admin: 10/11/22 00:33 Dose: 2 tab Albuterol Sulfate (Albuterol Sulfate 2.5 Mg/3 Ml Nebulizer) 2.5 mg NEB Q2HP PRN PRN Reason: Shortness Of Breath Aspirin (Aspirin 81 Mg Tab.Chew) 81 mg PO BID [facility] Last Admin: 10/10/22 21:04 Dose: 81 mg Bisacodyl (Bisacodyl 10 Mg Supp.Rect) 10 mg OR Q2-3DAYS PRN PRN Reason: Constipation Carbidopa/Levodopa (Carbidopa/Levodopa 25/100 Tablet) 2 tab PO QID [facility] Last Admin: 10/10/22 21:04 Dose: 2 tab Docusate Sodium (Docusate Sodium 100 Mg Capsule) 100 mg PO BID [facility] Last Admin: 10/10/22 21:03 Dose: 100 mg Acetaminophen (Ofirmev) 1,000 mg in 100 mls @ 200 mls/hr IV Q8H [facility]; Protocol Last Infusion: 10/11/22 03:45 Dose: Infused Ketorolac Tromethamine (Ketorolac 15 Mg/Ml Vial) 15 mg IV Q6HP PRN; Protocol PRN Reason: Per Pain Protocol Stop: 10/14/22 07:31 Levothyroxine Sodium (Levothyroxine 50 Mcg Tablet) 50 mcg PO QAMAC [facility] Last Admin: 10/10/22 15:19 Dose: 50 mcg Lorazepam (Lorazepam 1 Mg Tablet) 1 mg PO TID@0900,1200,2100 [facility] Last Admin: 10/10/22 21:03 Dose: 1 mg Magnesium Hydroxide (Magnesium Hydroxide 30 Ml Oral.Susp) 30 ml PO BIDP PRN PRN Reason: Constipation Melatonin (Melatonin 3 Mg Tablet) 3 mg PO HSP PRN PRN Reason: insomnia Methocarbamol (Methocarbamol 750 Mg Tablet) 750 mg PO Q6HP PRN PRN Reason: Muscle Spasm Last Admin: 10/10/22 15:19 Dose: 750 mg Mirtazapine (Mirtazapine 15 Mg Tablet) 30 mg PO QHS [facility] Last Admin: 10/10/22 21:04 Dose: 30 mg Morphine Sulfate (Morphine 4 Mg/Ml Vial) 0 mg IV Q1HP PRN; Protocol PRN Reason: Per Pain Protocol Omeprazole (Omeprazole 20 Mg Capsule) 20 mg PO BID [facility] Last Admin: 10/10/22 21:04 Dose: 20 mg Ondansetron HCl (Ondansetron 4 Mg Odt Tablet) 4 mg SL Q4HP PRN; Protocol PRN Reason: Nausea And Vomiting Oxycodone HCl (Oxycodone Hcl 5 Mg Tablet) 5 mg PO Q4HP PRN; Protocol PRN Reason: Per Pain Protocol Fluticasone- Umeclidin-Vilanter [ Trelegy Ellipta] 1 dose PO QDAY [facility] Last Admin: 10/10/22 11:41 Dose: Not Given Polyethylene Glycol (Polyethylene Glycol 3350 17 Gm Packet) 17 gm PO QPM [facility] Last Admin: 10/10/22 21:04 Dose: 17 gm Polyethylene Glycol (Polyethylene Glycol 3350 17 Gm Packet) 17 gm PO DAILYP PRN PRN Reason: Constipation Senna (Sennosides 1 Tablet) 2 tab PO HS [facility] Last Admin: 10/10/22 21:03 Dose: 2 tab Senna (Sennosides 1 Tablet) 1 tab PO QNOON [facility] Last Admin: 10/10/22 13:33 Dose: Not Given Sodium Biphosphate/Sodium Phosphate (Fleets Adult Enema) 1 dose OR Q3-4DAYS PRN PRN Reason: Constipation Sodium Chloride (0.9 % Sodium Chloride 10 Ml Syringe) 10 ml IV Q8 [facility] Last Admin: 10/11/22 05:56 Dose: 10 ml Vitamin D (Vitamin D3 25 Mcg Tablet) 50 mcg PO QNOON [facility] Last Admin: 10/10/22 13:33 Dose: Not Given A/P Narrative Plan of Treatment: Patient seen and examined this am. Awake alert, cooperative, seated at bedside. nursing staff endorses some agitation overnight. patient has no complaints of pain on current regimen. Dressing at [facility] both lower extremities are warm, well perfused, neuro intact with intact ankle motion to resistance. Plan is for expected discharge in 1-2 days likely to rehab for assistance with ADLs and f/u at [facility] in 10-14 days. Ortho signing off, final dispo TBD by attending hospitalist. weightbearing as tolerated with walker/ PT for assistance PT/OT pain control Time Spent With Patient Time: Total time spent is greater than 50% in coordination of care (as documented) at patient's floor/unit and/or counseling patient:
[2022-10-11] MEDS: CARBIDOPA/LEVODOPA 25/100 TABLET PO SCH ×6 (09:14→20:29)
[2022-10-11] MEDS: ASPIRIN 81 MG TAB.CHEW PO SCH ×2 (09:14→20:29)
[2022-10-11] MEDS: LEVOTHYROXINE 50 MCG TABLET PO SCH (09:14)
[2022-10-11] MEDS: LORazepam 1 MG TABLET PO SCH ×3 (09:14→20:29)
[2022-10-11] MEDS: DOCUSATE SODIUM 100 MG CAPSULE PO SCH ×2 (09:15→20:34)
[2022-10-11] MEDS: Fluticasone-Umeclidin-Vilanter [Trelegy Ellipta] PO SCH (09:15)
[2022-10-11] MEDS: OMEPRAZOLE 20 MG CAPSULE PO SCH ×2 (09:20→20:29)
--- NOTE | 2022-10-11 09:21 | Internal Med Progress Note ---
SUBJECTIVE Subjective Patient information: Note initiated : 10/11/22 at 9:17 am Service Date, if different from initiated Date: [] Patient: Kavitha Tristan 82 y/o F admitted on 10/09/22 for fall. Chief Complaint: [] Interval history: Ms. Tristan is a 82 year old female with a history of dementia, hyperlipidemia, COPD, Hypothyroid, GERD, dysphagia who was brought to the emergency department after she had a ground-level fall at home and hit her head. In the emergency department, the patient was found to have a left femoral neck fracture and a min or laceration on her head that was closed with filomena in the ED. The patient will be admitted for surgical correction of the hip fracture. 10/11 The patient underwent left hip hemiarthroplasty on 10/10/2022 shortly after admission. The surgery was uncomplicated. Last night the patient did have is sues with agitation, she was redirectable. We will remove the Botello catheter today and place external catheter with suction. Patient is on aspirin 81 mg twice daily for DVT prophylaxis per orthopedic surgery. She will work with physical therapy today, anticipate she will require low intensity rehab. Physical exam Head: Atraumatic, normal inspection. Eyes: normal appearance, no scleral icterus. Neck: full ROM Respiratory: no respiratory distress. Cardiovascular: normal rate and rhythm, S1, S2. GI/Abdominal: soft, nontender, no guarding. Extremities: Left hip surgical incision covered with bandage. Neurological: CN II-XII intact, intact motor, intact sensation. Psychiatric: Impaired cognition Constitutional Vitals: Vital Signs Temp Pulse Resp BP Pulse Ox O2 Del Method O2 Flow Rate 98.2 F 78 14 148/69 97 Room Air 0 10/11/22 04:57 10/11/22 04:57 10/11/22 04:57 10/11/22 04:57 10/11/22 04:57 10/11/22 04:57 10/10/22 20:00 Period Temp Pulse Resp BP Sys/Bales Pulse Ox O2 Del Method O2 Flow Rate Last 24 Hr 97.0 F-98.9 F 75-96 8-20 100-168/60-82 95-100 Room Air-Simple Mask 0-6 Intake and Output 10/10/22 10/11/22 10/11/22 19:59 03:59 11:59 Intake Total 1492 1038 540 Output Total 850 200 850 Balance 642 838 -310 Weight 38.357 kg 50.604 kg Intake & Output: Intake & Output 10/10/22 10/11/22 10/11/22 19:59 03:59 11:59 Intake Total 1492 1038 540 Output Total 850 200 850 Balance 642 838 -310 Weight 38.357 kg 50.604 kg Intake: IV 1092 1038 Sodium Chloride 0.9% 1,000 ml @ 892 938 100 mls/hr IV .Q10H [facility] Rx#: [id number] Oral 540 IV - Manual Only 400 Output: Urine Catheter Amount 650 200 850 Estimated Blood Loss 200 Other: Urine Appearance Clear Clear Clear Uretheral (Botello) Clear Urine Color Pale Yellow Yellow Uretheral (Botello) Yellow Urine Odor Normal Normal OBJ DATA Labs 10/11/22 05:40 Labs: Abnormal Lab Results 10/11/22 10/09/22 10/09/22 05:40 21:42 21:35 Hgb 10.4 L Hct 32.3 L POC Hct 34.0 L Immature Gran % (Auto) 0.6 H [place] # (Auto) 0.93 H Eos # (Auto) 0.74 H Immature Gran # 0.07 H POC BUN 33 H POC WB Ioniz Calcium 1.00 L Meds: Medications Hydrocodone Bitart/Acetaminophen (Hydrocodone/Apap 5/325mg Tablet) 0 tab PO Q4HP PRN; Protocol PRN Reason: Per Pain Protocol Last Admin: 10/11/22 09:16 Dose: 1 tab Albuterol Sulfate (Albuterol Sulfate 2.5 Mg/3 Ml Nebulizer) 2.5 mg NEB Q2HP PRN PRN Reason: Shortness Of Breath Aspirin (Aspirin 81 Mg Tab.Chew) 81 mg PO BID [facility] Last Admin: 10/11/22 09:14 Dose: 81 mg Bisacodyl (Bisacodyl 10 Mg Supp.Rect) [address] Q2-3DAYS PRN PRN Reason: Constipation Carbidopa/Levodopa (Carbidopa/Levodopa 25/100 Tablet) 2 tab PO QID [facility] Last Admin: 10/11/22 09:14 Dose: 2 tab Docusate Sodium (Docusate Sodium 100 Mg Capsule) 100 mg PO BID [facility] Last Admin: 10/11/22 09:15 Dose: 100 mg Acetaminophen (Ofirmev) 1,000 mg in 100 mls @ 200 mls/hr IV Q8H [facility]; Protocol Last Infusion: 10/11/22 03:45 Dose: Infused Ketorolac Tromethamine (Ketorolac 15 Mg/Ml Vial) 15 mg IV Q6HP PRN; Protocol PRN Reason: Per Pain Protocol Stop: 10/14/22 07:31 Levothyroxine Sodium (Levothyroxine 50 Mcg Tablet) 50 mcg PO QAMAC [facility] Last Admin: 10/11/22 09:14 Dose: 50 mcg Lorazepam (Lorazepam 1 Mg Tablet) 1 mg PO TID@0900,1200,2100 [facility] Last Admin: 10/11/22 09:14 Dose: 1 mg Magnesium Hydroxide (Magnesium Hydroxide 30 Ml Oral.Susp) 30 ml PO BIDP PRN PRN Reason: Constipation Melatonin (Melatonin 3 Mg Tablet) 3 mg PO HSP PRN PRN Reason: insomnia Methocarbamol (Methocarbamol 750 Mg Tablet) 750 mg PO Q6HP PRN PRN Reason: Muscle Spasm Last Admin: 10/10/22 15:19 Dose: 750 mg Mirtazapine (Mirtazapine 15 Mg Tablet) 30 mg PO QHS [facility] Last Admin: 10/10/22 21:04 Dose: 30 mg Morphine Sulfate (Morphine 4 Mg/Ml Vial) 0 mg IV Q1HP PRN; Protocol PRN Reason: Per Pain Protocol Omeprazole (Omeprazole 20 Mg Capsule) 20 mg PO BID [facility] Last Admin: 10/10/22 21:04 Dose: 20 mg Ondansetron HCl (Ondansetron 4 Mg Odt Tablet) 4 mg SL Q4HP PRN; Protocol PRN Reason: Nausea And Vomiting Oxycodone HCl (Oxycodone Hcl 5 Mg Tablet) 5 mg PO Q4HP PRN; Protocol PRN Reason: Per Pain Protocol Fluticasone- Umeclidin-Vilanter [ Trelegy Ellipta] 1 dose PO QDAY [facility] Last Admin: 10/11/22 09:15 Dose: Not Given Polyethylene Glycol (Polyethylene Glycol 3350 17 Gm Packet) 17 gm PO QPM [facility] Last Admin: 10/10/22 21:04 Dose: 17 gm Polyethylene Glycol (Polyethylene Glycol 3350 17 Gm Packet) 17 gm PO DAILYP PRN PRN Reason: Constipation Senna (Sennosides 1 Tablet) 2 tab PO HS [facility] Last Admin: 10/10/22 21:03 Dose: 2 tab Senna (Sennosides 1 Tablet) 1 tab PO QNOON [facility] Last Admin: 10/10/22 13:33 Dose: Not Given Sodium Biphosphate/Sodium Phosphate (Fleets Adult Enema) [address] Q3-4DAYS PRN PRN Reason: Constipation Sodium Chloride (0.9 % Sodium Chloride 10 Ml Syringe) 10 ml IV Q8 [facility] Last Admin: 10/11/22 05:56 Dose: 10 ml Vitamin D (Vitamin D3 25 Mcg Tablet) 50 mcg PO QNOON [facility] Last Admin: 10/10/22 13:33 Dose: Not Given A/P Narrative A/P Narrative: Assessment: 82 year old female with a history of dementia, hyperlipidemia, COPD, Hypothyroid, GERD, dysphagia admitted for a left femoral neck fracture secondary to a ground level fall at home. The patient also suffered a minor laceration to her head that required filomena in the ED. CT head did not show any acute traumatic changes changes however there is an expansile calvarial lesion that is felt to be benign. The patient had a left hip hemiarthroplasty on 10/10/2022 soon after admission under spinal anesthesia. 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 Plan -Remove indwelling Botello catheter. -Analgesics, bowel regimen. -Delirium bundle. -Continue home Sinemet, levothyroxine, Remeron, Prilosec, Ativan, Trelegy E llipta. -PT and OT consult. -Dysphagia level 6 diet. -Follow-up CT head in about 12 months if that is within the patient's goals of care. -DVT prophylaxis: Aspirin 81 mg twice daily. -Disposition: Anticipate the patient will need low intensity rehab at discharge. Plan of Treatment: Patient seen and examined this am. Awake alert, cooperative, seated at bedside. nursing staff endorses some agitation overnight. patient has no complaints of pain on current regimen. Dressing at [facility] both lower extremities are warm, well perfused, neuro intact with intact ankle motion to resistance. Plan is for expected discharge in 1-2 days likely to rehab for assistance with ADLs and f/u at [facility] in - days. Ortho signing off, final dispo TBD by attending hospitalist. weightbearing as tolerated with walker/ PT for assistance PT/OT pain control Time Spent With Patient Time: Total time spent is greater than 50% in coordination of care (as documented) at patient's floor/unit and/or counseling patient: QUALITY Stroke Symptom Onset Unknown: No VTE Deep Vein Thrombosis/Pulmonary Embolism Present on Admission: No
--- NOTE | 2022-10-11 12:47 | Internal Med Progress Note ---
SUBJECTIVE Subjective Patient information: Note initiated : 10/11/22 at 12:43 pm Service Date, if different from initiated Date: [] Patient: Kavitha Tristan 82 y/o F admitted on 10/09/22 for fall. Chief Complaint: [] Interval history: Ms. Tristan is a 82 year old female with a history of dementia, hyperlipidemia, COPD, Hypothyroid, GERD, dysphagia who was brought to the emergency department after she had a ground-level fall at home and hit her head. In the emergency department, the patient was found to have a left femoral neck fracture and a mi nor laceration on her head that was closed with filomena in the ED. The patient will be admitted for surgical correction of the hip fracture. 10/11 The patient underwent left hip hemiarthroplasty on 10/10/2022 shortly after admission. The surgery was uncomplicated. Last night the patient did have i ssues with agitation, she was redirectable. We will remove the Botello catheter today and place external catheter with suction. Patient is on aspirin 81 mg twice daily for DVT prophylaxis per orthopedic surgery. She will work with physical therapy today, anticipate she will require low intensity rehab. 10/12 Physical Exam: General: Alert, Awake, No acute Distress Eyes/N/T: EOMI, Head/Neck: neck supple, CV: RRR, No murmurs, Pulm: Clear b/l, no wheezing/rhonchi/rales Abd: soft, nontender, +BS x4 Ext: no clubbing/cyanosis/edema, left hip surgical incision covered with surgical dressing. Neuro: Alert, no focal deficits, moves all extremities, Skin: warm/dry Constitutional Vitals: Vital Signs Temp Pulse Resp BP Pulse Ox O2 Del Method O2 Flow Rate 98.2 F 78 14 148/69 97 Room Air 0 10/11/22 08:00 10/11/22 08:00 10/11/22 08:00 10/11/22 04:57 10/11/22 08:00 10/11/22 08:00 10/11/22 08:00 Period Temp Pulse Resp BP Sys/Bales Pulse Ox O2 Del Method O2 Flow Rate Last 24 Hr 97.0 F-98.2 F 78-95 14-20 100-148/60-74 95-97 Room Air-Room Air 0-0 Intake and Output 10/11/22 10/11/22 10/11/22 03:59 11:59 19:59 Intake Total 1038 540 Output Total 200 1350 Balance 838 -810 Weight 50.604 kg Intake & Output: Intake & Output 10/11/22 10/11/22 10/11/22 03:59 11:59 19:59 Intake Total 1038 540 Output Total 200 1350 Balance 838 -810 Weight 50.604 kg Intake: IV 1038 Sodium Chloride 0.9% 1,000 ml @ 938 100 mls/hr IV .Q10H [facility] Rx#: [id number] Oral 540 Output: Urine Catheter Amount 200 1350 Other: Urine Appearance Clear Clear Uretheral (Botello) Clear Urine Color Yellow Yellow Uretheral (Botello) Yellow Urine Odor Normal OBJ DATA Labs 10/11/22 05:40 Labs: Abnormal Lab Results 10/11/22 10/09/22 10/09/22 05:40 21:42 21:35 Hgb 10.4 L Hct 32.3 L POC Hct 34.0 L Immature Gran % (Auto) 0.6 H [place] # (Auto) 0.93 H Eos # (Auto) 0.74 H Immature Gran # 0.07 H POC BUN 33 H POC WB Ioniz Calcium 1.00 L Meds: Medications Hydrocodone Bitart/Acetaminophen (Hydrocodone/Apap 5/325mg Tablet) 0 tab PO Q4HP PRN; Protocol PRN Reason: Per Pain Protocol Last Admin: 10/11/22 09:16 Dose: 1 tab Albuterol Sulfate (Albuterol Sulfate 2.5 Mg/3 Ml Nebulizer) 2.5 mg NEB Q2HP PRN PRN Reason: Shortness Of Breath Aspirin (Aspirin 81 Mg Tab.Chew) 81 mg PO BID [facility] Last Admin: 10/11/22 09:14 Dose: 81 mg Bisacodyl (Bisacodyl 10 Mg Supp.Rect) 10 mg OR Q2-3DAYS PRN PRN Reason: Constipation Carbidopa/Levodopa (Carbidopa/Levodopa 25/100 Tablet) 2 tab PO QID [facility] Last Admin: 10/11/22 09:14 Dose: 2 tab Docusate Sodium (Docusate Sodium 100 Mg Capsule) 100 mg PO BID [facility] Last Admin: 10/11/22 09:15 Dose: 100 mg Acetaminophen (Ofirmev) 1,000 mg in 100 mls @ 200 mls/hr IV Q8H [facility]; Protocol Last Infusion: 10/11/22 03:45 Dose: Infused Ketorolac Tromethamine (Ketorolac 15 Mg/Ml Vial) 15 mg IV Q6HP PRN; Protocol PRN Reason: Per Pain Protocol Stop: 10/14/22 07:31 Levothyroxine Sodium (Levothyroxine 50 Mcg Tablet) 50 mcg PO QAMAC [facility] Last Admin: 10/11/22 09:14 Dose: 50 mcg Lorazepam (Lorazepam 1 Mg Tablet) 1 mg PO TID@0900,1200,2100 [facility] Last Admin: 10/11/22 09:14 Dose: 1 mg Magnesium Hydroxide (Magnesium Hydroxide 30 Ml Oral.Susp) 30 ml PO BIDP PRN PRN Reason: Constipation Melatonin (Melatonin 3 Mg Tablet) 3 mg PO HSP PRN PRN Reason: insomnia Methocarbamol (Methocarbamol 750 Mg Tablet) 750 mg PO Q6HP PRN PRN Reason: Muscle Spasm Last Admin: 10/10/22 15:19 Dose: 750 mg Mirtazapine (Mirtazapine 15 Mg Tablet) 30 mg PO QHS [facility] Last Admin: 10/10/22 21:04 Dose: 30 mg Morphine Sulfate (Morphine 4 Mg/Ml Vial) 0 mg IV Q1HP PRN; Protocol PRN Reason: Per Pain Protocol Omeprazole (Omeprazole 20 Mg Capsule) 20 mg PO BID [facility] Last Admin: 10/11/22 09:20 Dose: Not Given Ondansetron HCl (Ondansetron 4 Mg Odt Tablet) 4 mg SL Q4HP PRN; Protocol PRN Reason: Nausea And Vomiting Oxycodone HCl (Oxycodone Hcl 5 Mg Tablet) 5 mg PO Q4HP PRN; Protocol PRN Reason: Per Pain Protocol Fluticasone- Umeclidin-Vilanter [ Trelegy Ellipta] 1 dose PO QDAY [facility] Last Admin: 10/11/22 09:15 Dose: Not Given Polyethylene Glycol (Polyethylene Glycol 3350 17 Gm Packet) 17 gm PO QPM [facility] Last Admin: 10/10/22 21:04 Dose: 17 gm Polyethylene Glycol (Polyethylene Glycol 3350 17 Gm Packet) 17 gm PO DAILYP PRN PRN Reason: Constipation Senna (Sennosides 1 Tablet) 2 tab PO HS [facility] Last Admin: 10/10/22 21:03 Dose: 2 tab Senna (Sennosides 1 Tablet) 1 tab PO QNOON [facility] Last Admin: 10/10/22 13:33 Dose: Not Given Sodium Biphosphate/Sodium Phosphate (Fleets Adult Enema) 1 dose OR Q3-4DAYS PRN PRN Reason: Constipation Sodium Chloride (0.9 % Sodium Chloride 10 Ml Syringe) 10 ml IV Q8 [facility] Last Admin: 10/11/22 05:56 Dose: 10 ml Vitamin D (Vitamin D3 25 Mcg Tablet) 50 mcg PO QNOON [facility] Last Admin: 10/10/22 13:33 Dose: Not Given A/P Narrative A/P Narrative: A: #Left femoral neck fracture: s/p hemiarthroplasty (10/10/2022) #Dementia with behavioral disturbances: #Head laceration: s/p filomena in the ED #Parkinson disease: #Oropharyngeal Dysphagia: #Hyperlipidemia #Hypothyroidism: #GERD: #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 -Delirium bundle. -Continue home Sinemet, levothyroxine, Remeron, Prilosec, Ativan, Trelegy Ellipta. -PT and OT consult. -Dysphagia level 6 diet. -Follow-up CT head in about 12 months if that is within the patient's goals of care. -CM for placement -ppx: Aspirin 81 mg twice daily per ortho Disposition: Anticipate the patient will need low intensity rehab at discharge. Plan of Treatment: Patient seen and examined this am. Awake alert, cooperative, seated at bedside. nursing staff endorses some agitation overnight. patient has no complaints of pain on current regimen. Dressing at [facility] both lower extremities are warm, well perfused, neuro intact with intact ankle motion to resistance. Plan is for expected discharge in 1-2 days likely to rehab for assistance with ADLs and f/u at [facility] in 10-14 days. Ortho signing off, final dispo TBD by attending hospitalist. weightbearing as tolerated with walker/ PT for assistance PT/OT pain control Time Spent With Patient Time: Total time spent is greater than 50% in coordination of care (as documented) at patient's floor/unit and/or counseling patient: QUALITY Stroke Symptom Onset Unknown: No VTE Deep Vein Thrombosis/Pulmonary Embolism Present on Admission: No
[2022-10-11] MEDS: SENNOSIDES 1 TABLET PO SCH ×2 (13:02→20:29)
[2022-10-11] MEDS: VITAMIN D3 25 MCG TABLET PO SCH (13:02)
[2022-10-11] MEDS: MIRTAZAPINE 15 MG TABLET PO SCH (20:29)
[2022-10-11] MEDS: POLYETHYLENE GLYCOL 3350 17 GM PACKET PO SCH (20:34)
[2022-10-11] MEDS: BUDESONIDE 0.5 MG/2 ML AMPUL.NEB NEB SCH (21:23)
[2022-10-12] MEDS: ACETAMINOPHEN 1,000 MG/100 ML BAG IV SCH ×2 (02:09→02:24)
[2022-10-12] MEDS: 0.9 % SODIUM CHLORIDE 10 ML SYRINGE IV SCH ×3 (04:17→21:45)
[2022-10-12 06:18] LABS: Hematocrit 28.8 % (34.1-44.9); Hemoglobin 9.3 g/dL (11.2-15.7)
--- NOTE | 2022-10-12 07:24 | EKG ---
[facility] Test Date: 2022-10-09 Pat Name: Kavitha Tristan Department: ED Room: Gender: Female [employer] Wrestler: ss : 1940 Requested By: Ethan Smith Order Number: [id number] Reading MD: Reggie Sheikh Measurements Intervals [place] Rate: 74 P: 0 NH: 71 QRS: 67 QRSD: 75 T: 71 QT: 413 QTc: 459 Interpretive Statements Sinus rhythm Atrial premature complex Electronically Signed On 10-12-2022 7:24:22 PST by Reggie Sheikh /store/[email or web address]/[id number]
--- NOTE | 2022-10-12 07:27 | Internal Med Progress Note ---
SUBJECTIVE Subjective Patient information: Note initiated : 10/12/22 at 7:26 am Service Date, if different from initiated Date: [] Patient: Kavitha Tristan 82 y/o F admitted on 10/09/22 for fall. Chief Complaint: [] Interval history: Ms. Tristan is a 82 year old female with a history of dementia, hyperlipidemia, COPD, Hypothyroid, GERD, dysphagia who was brought to the emergency department after she had a ground-level fall at home and hit her head. In the emergency department, the patient was found to have a left femoral neck fracture and a min or laceration on her head that was closed with filomena in the ED. The patient will be admitted for surgical correction of the hip fracture. 10/11 The patient underwent left hip hemiarthroplasty on 10/10/2022 shortly after admission. The surgery was uncomplicated. Last night the patient did have is sues with agitation, she was redirectable. We will remove the Botello catheter today and place external catheter with suction. Patient is on aspirin 81 mg twice daily for DVT prophylaxis per orthopedic surgery. She will work with physical therapy today, anticipate she will require low intensity rehab. 10/12 Patient sleeping but arousable. No nausea or vomiting. Surgical site pain controlled with medication. Per nurse cough with mildly thickened liquids last night and is awaiting speech therapy eval. seems like she had a better night last night as far as agitation. Review of Systems: denies headache/fever/chills/nausea/vomiting/chest or abdominal pain/cough/dyspnea/diarrhea. Otherwise see above. Physical Exam: General: Alert, Awake, No acute Distress Eyes/N/T: EOMI, Head/Neck: neck supple, CV: RRR, No murmurs, Pulm: Clear b/l, no wheezing/rhonchi/rales Abd: soft, nontender, +BS x4 Ext: no clubbing/cyanosis/edema, left hip surgical incision covered with surgical dressing. Neuro: Alert, no focal deficits, moves all extremities, Skin: warm/dry Constitutional Vitals: Vital Signs Temp Pulse Resp BP Pulse Ox O2 Del Method O2 Flow Rate 98.4 F 78 17 121/60 96 Room Air 0 10/12/22 04:00 10/12/22 04:00 10/12/22 04:00 10/12/22 04:00 10/12/22 04:00 10/12/22 04:00 10/11/22 08:00 Period Temp Pulse Resp BP Sys/Bales Pulse Ox O2 Del Method O2 Flow Rate Last 24 Hr 97.8 F-99.5 F 78-98 14-20 116-148/55-76 95-97 Room Air-Room Air 0 Intake and Output 10/11/22 10/12/22 10/12/22 19:59 03:59 11:59 Intake Total 390 200 90 Output Total 2 3 Balance 388 200 87 Weight 50.405 kg Intake & Output: Intake & Output 10/11/22 10/12/22 10/12/22 19:59 03:59 11:59 Intake Total 390 200 90 Output Total 2 3 Balance 388 200 87 Weight 50.405 kg Intake: IV 50 200 Oral 340 90 Output: # of times incontinent of urine 2 3 Other: Meal Lunch Feeding Ability Assist with Tray Set Up Urine Odor Normal # Voids 3 OBJ DATA Labs 10/12/22 05:29 Labs: Abnormal Lab Results 10/12/22 10/11/22 10/09/22 05:29 05:40 21:42 Hgb 9.3 L 10.4 L Hct 28.8 L 32.3 L POC Hct Immature Gran % (Auto) 0.6 H Cass # (Auto) 0.93 H Eos # (Auto) 0.74 H Immature Gran # 0.07 H POC BUN POC WB Ioniz Calcium 10/09/22 21:35 Hgb Hct POC Hct 34.0 L Immature Gran % (Auto) Cass # (Auto) Eos # (Auto) Immature Gran # POC BUN 33 H POC WB Ioniz Calcium 1.00 L Meds: Medications Hydrocodone Bitart/Acetaminophen (Hydrocodone/Apap 5/325mg Tablet) 0 tab PO Q4HP PRN; Protocol PRN Reason: Per Pain Protocol Last Admin: 10/11/22 09:16 Dose: 1 tab Albuterol Sulfate (Albuterol Sulfate 2.5 Mg/3 Ml Nebulizer) 2.5 mg NEB Q2HP PRN PRN Reason: Shortness Of Breath Aspirin (Aspirin 81 Mg Tab.Chew) 81 mg PO BID LUCY Last Admin: 10/11/22 20:29 Dose: 81 mg Bisacodyl (Bisacodyl 10 Mg Supp.Rect) 10 mg CA Q2-3DAYS PRN PRN Reason: Constipation Budesonide (Budesonide 0.5 Mg/2 Ml Ampul.Neb) 0.5 mg NEB Q12 [facility] Last Admin: 10/11/22 21:23 Dose: 0.5 mg Carbidopa/Levodopa (Carbidopa/Levodopa 25/100 Tablet) 2 tab PO QID [facility] Last Admin: 10/11/22 20:29 Dose: 2 tab Docusate Sodium (Docusate Sodium 100 Mg Capsule) 100 mg PO BID [facility] Last Admin: 10/11/22 20:34 Dose: Not Given Acetaminophen (Ofirmev) 1,000 mg in 100 mls @ 200 mls/hr IV Q8H [facility]; Protocol Last Infusion: 10/12/22 02:54 Dose: Infused Ketorolac Tromethamine (Ketorolac 15 Mg/Ml Vial) 15 mg IV Q6HP PRN; Protocol PRN Reason: Per Pain Protocol Stop: 10/14/22 07:31 Levothyroxine Sodium (Levothyroxine 50 Mcg Tablet) 50 mcg PO QAMAC [facility] Last Admin: 10/11/22 09:14 Dose: 50 mcg Lorazepam (Lorazepam 1 Mg Tablet) 1 mg PO TID@0900,1200,2100 [facility] Last Admin: 10/11/22 20:29 Dose: 1 mg Magnesium Hydroxide (Magnesium Hydroxide 30 Ml Oral.Susp) 30 ml PO BIDP PRN PRN Reason: Constipation Melatonin (Melatonin 3 Mg Tablet) 3 mg PO HSP PRN PRN Reason: insomnia Methocarbamol (Methocarbamol 750 Mg Tablet) 750 mg PO Q6HP PRN PRN Reason: Muscle Spasm Last Admin: 10/10/22 15:19 Dose: 750 mg Mirtazapine (Mirtazapine 15 Mg Tablet) 30 mg PO QHS [facility] Last Admin: 10/11/22 20:29 Dose: 30 mg Morphine Sulfate (Morphine 4 Mg/Ml Vial) 0 mg IV Q1HP PRN; Protocol PRN Reason: Per Pain Protocol Omeprazole (Omeprazole 20 Mg Capsule) 20 mg PO BID [facility] Last Admin: 10/11/22 20:29 Dose: 20 mg Ondansetron HCl (Ondansetron 4 Mg Odt Tablet) 4 mg SL Q4HP PRN; Protocol PRN Reason: Nausea And Vomiting Oxycodone HCl (Oxycodone Hcl 5 Mg Tablet) 5 mg PO Q4HP PRN; Protocol PRN Reason: Per Pain Protocol Fluticasone- Umeclidin-Vilanter [ Trelegy Ellipta] 1 dose PO QDAY [facility] Last Admin: 10/11/22 09:15 Dose: Not Given Polyethylene Glycol (Polyethylene Glycol 3350 17 Gm Packet) 17 gm PO QPM [facility] Last Admin: 10/11/22 20:34 Dose: Not Given Polyethylene Glycol (Polyethylene Glycol 3350 17 Gm Packet) 17 gm PO DAILYP PRN PRN Reason: Constipation Senna (Sennosides 1 Tablet) 2 tab PO HS [facility] Last Admin: 10/11/22 20:29 Dose: 2 tab Senna (Sennosides 1 Tablet) 1 tab PO QNOON [facility] Last Admin: 10/11/22 13:02 Dose: 1 tab Sodium Biphosphate/Sodium Phosphate (Fleets Adult Enema) 1 dose CA Q3-4DAYS PRN PRN Reason: Constipation Sodium Chloride (0.9 % Sodium Chloride 10 Ml Syringe) 10 ml IV Q8 [facility] Last Admin: 10/12/22 04:17 Dose: 10 ml Vitamin D (Vitamin D3 25 Mcg Tablet) 50 mcg PO QNOON [facility] Last Admin: 10/11/22 13:02 Dose: 50 mcg A/P Narrative A/P Narrative: A: #Left femoral neck fracture: s/p hemiarthroplasty (10/10/2022) #Dementia with behavioral disturbances: #Anemia in post-op setting: #Head laceration: s/p filomena in the ED #Parkinson disease: #Oropharyngeal Dysphagia: #Hyperlipidemia #Hypothyroidism: #GERD: #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 -Delirium bundle. -monitor H&H -Continue home Sinemet, levothyroxine, Remeron, Prilosec, Ativan, Trelegy Ellipta. -PT and OT consult. -ST eval -Dysphagia level 6 diet. -Follow-up CT head in about 12 months if that is within the patient's goals of care. -CM for placement -ppx: Aspirin 81 mg twice daily per ortho Disposition: Anticipate the patient will need low intensity rehab at discharge. Plan of Treatment: Patient seen and examined this am. Awake alert, cooperative, seated at bedside. nursing staff endorses some agitation overnight. patient has no complaints of pain on current regimen. Dressing at [facility] both lower extremities are warm, well perfused, neuro intact with intact ankle motion to resistance. Plan is for expected discharge in 1-2 days likely to rehab for assistance with ADLs and f/u at [facility] in 10-14 days. Ortho signing off, final dispo TBD by attending hospitalist. weightbearing as tolerated with walker/ PT for assistance PT/OT pain control Time Spent With Patient Time: Total time spent is greater than 50% in coordination of care (as documented) at patient's floor/unit and/or counseling patient: Subsequent: Total time with patient: 35 - 49 minutes QUALITY Stroke Symptom Onset Unknown: No VTE Deep Vein Thrombosis/Pulmonary Embolism Present on Admission: No
[2022-10-12] MEDS: LEVOTHYROXINE 50 MCG TABLET PO SCH (08:28)
[2022-10-12] MEDS: CARBIDOPA/LEVODOPA 25/100 TABLET PO SCH ×5 (08:28→21:45)
[2022-10-12] MEDS: LORazepam 1 MG TABLET PO SCH ×4 (08:29→21:44)
[2022-10-12] MEDS: ASPIRIN 81 MG TAB.CHEW PO SCH ×3 (08:29→21:44)
[2022-10-12] MEDS: OMEPRAZOLE 20 MG CAPSULE PO SCH ×3 (08:29→21:45)
[2022-10-12] MEDS: DOCUSATE SODIUM 100 MG CAPSULE PO SCH ×3 (08:30→21:44)
[2022-10-12] MEDS: Fluticasone-Umeclidin-Vilanter [Trelegy Ellipta] PO SCH (08:30)
--- NOTE | 2022-10-12 08:38 | Operative Note ---
DATE OF OPERATION: 10/10/2022 POSTOPERATIVE DIAGNOSIS: Femoral neck fracture, left hip. PROCEDURE PERFORMED: Left hip hemiarthroplasty. Trini Thomson PHYSICAL SCIENCE PROFESSOR SURGEON: MARZENA Lamas. ESTIMATED BLOOD LOSS: 300 mL. IMPLANTS: A DESCRIPTION OF PROCEDURE: Using a fourth generation cementing technique and inserted that. filomena in the skin. PREOPERATIVE DIAGNOSIS: Femoral neck fracture, left hip. POSTOPERATIVE DIAGNOSIS: Femoral neck fracture, left hip. PROCEDURE: Left hip hemiarthroplasty. SURGEON: Rolly Thomson M.D. PHYSICAL SCIENCE PROFESSOR SURGEON: Kuldeep Chamorro PA-C. The assistance of the PA was required for the safe and efficient completion of the entire case. The expertise and technical skill of this provider was required throughout the case. The PA assisted with preoperative coordination, intraoperative retraction, wound closure, dressing and splint application, as well as postoperative documentation and care coordination. ANESTHESIA: Spinal with LMA assist. ESTIMATED BLOOD LOSS: 300 mL. COMPLICATIONS: None noted. SPECIMENS REMOVED: None. DRAINS: None. IMPLANTS: DePuy Gasquet femoral stem size 5 standard. DePuy modular [place] fracture head hip ball 48 mm. DePuy cementralizer stem centralizer 10.5. DePuy modular Fior tapered spacer -3. INDICATIONS: The patient fell and was unable to ambulate. Radiographs have confirmed a displaced femoral neck fracture. The patient was admitted to the hospital and underwent medical clearance. After a long discussion about treatment options, the patient elected to proceed with a hip hemiarthroplasty. The risks and benefits were discussed with the patient in detail including, but not limited to, the risks of anesthesia, problems with the heart or lungs related to anesthesia, infection, compromise or injury to the nerves and blood vessels, deep venous thrombosis, pulmonary embolism, pneumonia, continued pain after surgery, worsening pain or symptoms after surgery, swelling, loss of motion, instability, leg length discrepancy, and need for repeat surgery. DESCRIPTION OF PROCEDURE: The patient was seen in preanesthesia waiting room where all questions were answered and the correct side and site were identified and marked. The patient was then brought to the operating room and administered the anesthetic, tranexamic acid, and given preoperative antibiotics. A timeout was then called. The patient was placed in the lateral decubitus position with all prominences well-padded using the Brackney frame and the extremity was prepped and draped in the usual sterile fashion. A standard posterior approach was made. We dissected through the skin and subcutaneous tissue to the deep fascia. The deep fascia was split in line with the incision and a Charnley retractor was placed. We exposed, tagged, and incised the short external rotators and piriformis tendon and retracted them posteriorly to help protect the sciatic nerve, which was palpated throughout the case. We then performed a T-capsulotomy and tagged the capsule edges. The hip was then dislocated and a femoral neck osteotomy was performed to the presurgical templated level off the lesser trochanter. The head was removed and sized. The acetabulum was inspected and did not have a significant degree of osteoarthritis. All bone and fracture debris was removed. Our attention was now turned to the femur. We placed retractors for visualization, internally rotated the femur, and established intramedullary access. We incrementally broached our stem to a stable platform medial, lateral, and rotationally with the appropriate version. We then performed a calcar reaming off the broach. Trials were then placed and optimized for leg length, soft tissue tension, and stability. Best stability, length, and offset characteristics were obtained with these sizes. We removed all trials and impacted the femoral stem to its broached location using a fourth generation cementing technique and placed the head. Final reduction was performed. Again, good stability, leg length, and offset characteristics were noted. We irrigated with three liters of antibiotic saline. We closed the capsule with #2 FiberWire. We closed the fascia with a combination of #1 Stratafix and 0 Vicryl. We closed the subcutaneous tissue and skin in layers out to filomena in the skin. A sterile pressure dressing and abduction wedge was applied. All needle and sponge counts were correct. The patient was transferred to the recovery room in stable condition. PIERRE:shiraz Job ID: [id number] Doc ID: [id number] Rolly Thomson MD
[2022-10-12] MEDS: BUDESONIDE 0.5 MG/2 ML AMPUL.NEB NEB SCH ×2 (09:48→20:46)
--- NOTE | 2022-10-12 09:56 | Discharge Summary ---
Discharge Provider Provider IMPORTANT FOLLOW-UP INFORMATION FOR PCP: Patient information: Note initiated : 10/12/22 at 9:54 am Service Date, if different from initiated Date: [] Patient: Kavitha Tristan 82 y/o F admitted on 10/09/22 for fall. Chief Complaint: [] Date of admission: 10/09/22 23:53 Discharge date: 10/13/22 Primary care physician: Zachary Hebert MD Consults: 10/09/22 Consult to Physician [CONS] Stat Comment: Consulting Provider: Everardo Kelsey Reason For Exam: Physician to Consult Consult to Physician [CONS] Stat Comment: Consulting Provider: Gen Thomson Reason For Exam: Physician to Consult 10/10/22 00:02 Consult to Physician [CONS] Routine Comment: Consulting Provider: Gen Thomson Reason For Exam: Physician to Consult COURSE Hospital Course Hospital course: Interval history: Ms. Tristan is a 82 year old female with a history of dementia, hyperlipidemia, COPD, Hypothyroid, GERD, dysphagia who was brought to the emergency department after she had a ground-level fall at home and hit her head. In the emergency department, the patient was found to have a left femoral neck fracture and a minor laceration on her head that was closed with filomena in the ED. The patient will be admitted for surgical correction of the hip fracture. 10/11 The patient underwent left hip hemiarthroplasty on 10/10/2022 shortly after admission. The surgery was uncomplicated. Last night the patient did have issues with agitation, she was redirectable. We will remove the Botello catheter today and place external catheter with suction. Patient is on aspirin 81 mg twice daily for DVT prophylaxis per orthopedic surgery. She will work with physical therapy today, anticipate she will require low intensity rehab. 10/12 Patient sleeping but arousable. No nausea or vomiting. Surgical site pain controlled with medication. Per nurse cough with mildly thickened liquids last night and is awaiting speech therapy eval. seems like she had a better night last night as far as agitation. 10/13 No overnight event or new complaints. Stable for discharge to nursing rehab facility. A: #Left femoral neck fracture: s/p hemiarthroplasty (10/10/2022) #Dementia with behavioral disturbances: #Anemia in post-op setting: #Head laceration: s/p filomena in the ED #Parkinson disease: #Oropharyngeal Dysphagia: #Hyperlipidemia #Hypothyroidism: #GERD: #Expansile calvarial lesion probably benign: Plan -f/u with Orthopedics Discharge diagnosis: Left hip fracture dementia with behaviors Secondary discharge diagnosis: Anemia in the postop setting and laceration Parkinson's oral pharyngeal dysphagia hyperlipidemia hypothyroidism GERD Time Spent with Patient Time attestation: Total time spent providing and/or coordinating discharge services: Time spent: Greater than 30 minutes EXAM Constitutional Vitals: Temp Pulse Resp BP Pulse Ox O2 Del Method O2 Flow Rate 97.3 F 81 16 124/66 94 Room Air 0 10/12/22 07:50 10/12/22 09:50 10/12/22 09:50 10/12/22 07:50 10/12/22 09:50 10/12/22 09:50 10/11/22 08:00 Discharge Data Data Completed and Pending Labs on day of discharge: Labs from last 24 hours 10/12/22 05:29 Hgb 9.3 L Hct 28.8 L Discharge Plan Patient/Caregiver Discharge Instructions Activity: ambulate only with your walker and as per physical therapy Diet: Regular Diet Prescriptions: New hydrocodone-acetaminophen 5-325 mg tablet 1 - 2 tab PO Q4H PRN (Reason: Pain) Qty: 60 0RF aspirin [Tana Low Dose Aspirin] 81 mg tablet,delayed release (DR/EC) 81 mg PO BID Qty: 30 0RF Continued mirtazapine 30 mg tablet 30 mg PO QHS Qty: 90 1RF Trelegy Ellipta 200-62.5-25 mcg blister with device 1 ea PO QDAY Qty: 60 2RF levothyroxine 50 mcg tablet See Rx Instructions .ROUTE .COMPLEX Qty: 90 1RF Dose Instruction: Take 1 tablet by mouth once daily Rx Instructions: Take 1 tablet by mouth once daily omeprazole 20 mg capsule,delayed release(DR/EC) 20 mg PO BID Qty: 180 1RF aspirin 81 mg tablet,delayed release (DR/EC) 81 mg PO QPM sennosides [Senna Laxative] 8.6 mg tablet 17.2 mg PO QNOON calcium citrate 250 mg calcium tablet 500 mg PO QAM Rx Instructions: [address] Hebert carbidopa-levodopa [Sinemet] 25-100 mg tablet 2 tab PO QID polyethylene glycol 3350 [Miralax] 17 gram powder in packet 17 g PO QPM Patient Comments: mix one capful (17 grams) in 8 oz of water or liquid of choice and drink once to twice daily as needed for constipation. Rx Instructions: mix into 4-8 oz. of any hot/cold/room temp. beverage and drink immediately cholecalciferol (vitamin D3) 1,000 unit capsule 2,000 unit PO QNOON Rx Instructions: administer with meals lorazepam [Ativan] 1 mg tablet 1 mg PO .COMPLEX Qty: 10 0RF Rx Instructions: 1 mg PO in AM, 1 mg at noon, 1 mg at evening; *Must last 30 days. Other Ambulatory Orders: Physical Therapy [facility] - [facility] (Routine) Location: None Selected Ordered By: Gen Thomson Toilet Riser Discharge Order (ONCE) Location: None Selected Ordered By: Gen Thomson Walker (ONCE) Location: None Selected Ordered By: Gen Thomson Follow Up Plan Follow up with: Gen Thomson MD [Physician] - Zachary Hebert MD [Primary Care Provider] - Patient Disposition: Xfer SNF Plan of Treatment: Patient seen and examined this am. Awake alert, cooperative, seated at bedside. nursing staff endorses some agitation overnight. patient has no complaints of pain on current regimen. Dressing at [facility] both lower extremities are warm, well perfused, neuro intact with intact ankle motion to resistance. Plan is for expected discharge in 1-2 days likely to rehab for assistance with ADLs and f/u at [facility] in 10-14 days. Ortho signing off, final dispo TBD by attending hospitalist. weightbearing as tolerated with walker/ PT for assistance PT/OT pain control Prognosis: Fair Rehab Potential: Good I certify that the patient requires SNF services: Yes Overall status at discharge: patient is progressing back to baseline Discharge Orders: Discharge Order (Routine); Ordered 10/10/22 Ordered By: Gen Thomson Discharge Comment: cc: hip fx s/p jin QUALITY VTE Deep Vein Thrombosis/Pulmonary Embolism Present on Admission: No
[2022-10-12] MEDS ORDERED: ACETAMINOPHEN 500 MG TABLET PO PRN (10:27)
[2022-10-12] MEDS: SENNOSIDES 1 TABLET PO SCH ×3 (12:48→21:45)
[2022-10-12] MEDS: VITAMIN D3 25 MCG TABLET PO SCH (12:55)
[2022-10-12] MEDS: MIRTAZAPINE 15 MG TABLET PO SCH ×2 (21:16→21:46)
[2022-10-12] MEDS: POLYETHYLENE GLYCOL 3350 17 GM PACKET PO SCH ×2 (21:16→21:45)
[2022-10-13] MEDS: 0.9 % SODIUM CHLORIDE 10 ML SYRINGE IV SCH (04:00)
[2022-10-13 07:20] LABS: Hematocrit 29.7 % (34.1-44.9); Hemoglobin 9.6 g/dL (11.2-15.7)
[2022-10-13] MEDS: CARBIDOPA/LEVODOPA 25/100 TABLET PO SCH (08:49)
[2022-10-13] MEDS: ASPIRIN 81 MG TAB.CHEW PO SCH (08:49)
[2022-10-13] MEDS: DOCUSATE SODIUM 100 MG CAPSULE PO SCH (08:49)
[2022-10-13] MEDS: LORazepam 1 MG TABLET PO SCH (08:49)
[2022-10-13] MEDS: OMEPRAZOLE 20 MG CAPSULE PO SCH (08:49)
[2022-10-13] MEDS: LEVOTHYROXINE 50 MCG TABLET PO SCH (08:49)
[2022-10-13] MEDS: Fluticasone-Umeclidin-Vilanter [Trelegy Ellipta] PO SCH (08:49)
[2022-10-13] MEDS: BUDESONIDE 0.5 MG/2 ML AMPUL.NEB NEB SCH (10:07)
== END 2022-10-13 12:30 | DRG 522 ==
LOC: ED 20:50 → MEDSUR 23:53
PROVIDERS: ADMIT Internal Medicine; ATTEND Internal Medicine

== ENCOUNTER 2023-10-07 17:38 | Inpatient (IN) ==
[2023-10-07] MEDS: LACTATED RINGERS 1,000 ML IV ONE (18:50)
[2023-10-07 18:52] LABS: POC Calcium, Ionized 1.11 (1.16-1.32); POC Creatinine 1.2 (0.6-1.2)
[2023-10-07] MEDS: VANCOMYCIN 1,000 MG in 0.9 % SODIUM CHLORIDE 250 ML IV ONE (19:09)
[2023-10-07 19:22] LABS: Basophils # (Auto) 0.04 K/mcL (0.00-0.30); Basophils % (Auto) 0.2 % (0.0-2.0); Eosinophils # (Auto) 0.31 K/mcL (0.00-0.70); Eosinophils % (Auto) 1.9 % (0.0-7.0); Hematocrit 37.5 % (34.1-44.9); Hemoglobin 11.7 g/dL (11.2-15.7); Lymphocytes # (Auto) 2.44 K/mcL (1.50-4.80); Lymphocytes % (Auto) 14.9 % (15.5-49.0); Mean Cell Volume 93.5 fL (80.0-100.0); Mean Corpuscular HGB Conc 31.2 g/dL (31.0-36.0); Mean Platelet Volume 10.3 fL (8.8-12.5); Monocytes # (Auto) 1.75 K/mcL (0.10-0.90); Monocytes % (Auto) 10.7 % (1.0-12.0); Neutrophils % (Auto) 71.9 % (38.0-78.0); Platelet Count 338 K/mcL (140-440); RBC 4.01 M/mcL (3.59-5.38); Red Cell Distribution Width 13.7 % (11.5-14.5); WBC 16.3 K/mcL (4.5-11.0)
[2023-10-07 19:24] LABS: Erythrocyte Sedimentation Rate 49 mm/hr (0-30)
[2023-10-07 19:36] LABS: AST/SGOT 13 U/L (<32); Albumin 3.5 gm/dL (3.2-5.2); Albumin/Globulin Ratio 0.8 (1.0-2.3); Alkaline Phosphatase 82 U/L (39-117); Bilirubin,Total 0.3 mg/dL (0.1-1.0); Blood Urea Nitrogen 35 mg/dL (8-23); Calcium 8.9 mg/dL (8.6-10.4); Carbon Dioxide 28 mmol/L (22-30); Chloride 100 mmol/L (96-108); Globulin 4.3 gm/dL (2.2-3.7); Glomerular Filtration Rate 47; Glucose 116 mg/dL (70-105)
[2023-10-07] MEDS ORDERED: SENNOSIDES 1 TABLET PO PRN (23:43)
[2023-10-07] MEDS ORDERED: ONDANSETRON 4 MG/2 ML VIAL IV PRN (23:43)
[2023-10-07] MEDS ORDERED: ALBUTEROL SULFATE 2.5 MG/3 ML NEBULIZER NEB PRN (23:43)
[2023-10-07] MEDS ORDERED: KETOROLAC 30 MG/ML VIAL IV PRN (23:43)
[2023-10-07] MEDS ORDERED: ACETAMINOPHEN 325 MG TABLET PO PRN (23:43)
[2023-10-08] MEDS: 0.9 % SODIUM CHLORIDE 10 ML SYRINGE IV SCH (00:37)
[2023-10-08] MEDS: ceFAZolin 1 GM VIAL IV SCH (00:37)
[2023-10-08] MEDS: ceFAZolin 1 GM VIAL ONE (00:37)
[2023-10-08 07:07] LABS: Basophils # (Auto) 0.04 K/mcL (0.00-0.30); Basophils % (Auto) 0.2 % (0.0-2.0); Eosinophils # (Auto) 0.34 K/mcL (0.00-0.70); Eosinophils % (Auto) 2.1 % (0.0-7.0); Hematocrit 34.2 % (34.1-44.9); Hemoglobin 10.6 g/dL (11.2-15.7); Lymphocytes # (Auto) 1.84 K/mcL (1.50-4.80); Lymphocytes % (Auto) 11.4 % (15.5-49.0); Mean Cell Volume 93.2 fL (80.0-100.0); Monocytes # (Auto) 1.38 K/mcL (0.10-0.90); Monocytes % (Auto) 8.6 % (1.0-12.0); Neutrophils % (Auto) 77.5 % (38.0-78.0); Platelet Count 325 K/mcL (140-440); RBC 3.67 M/mcL (3.59-5.38); Red Cell Distribution Width 13.4 % (11.5-14.5); WBC 16.1 K/mcL (4.5-11.0)
[2023-10-08 07:17] LABS: ALT/SGPT < 5 U/L (<40); AST/SGOT 12 U/L (<32); Albumin 2.9 gm/dL (3.2-5.2); Albumin/Globulin Ratio 0.8 (1.0-2.3); Alkaline Phosphatase 72 U/L (39-117); Bilirubin,Direct < 0.2 mg/dL (0-0.3); Bilirubin,Total 0.3 mg/dL (0.1-1.0); Blood Urea Nitrogen 24 mg/dL (8-23); Calcium 8.2 mg/dL (8.6-10.4); Carbon Dioxide 24 mmol/L (22-30); Chloride 107 mmol/L (96-108); Globulin 3.8 gm/dL (2.2-3.7); Glomerular Filtration Rate 69; Glucose 101 mg/dL (70-105); Lactate Dehydrogenase 115 U/L (135-225); Phosphorous 2.5 mg/dL (2.5-4.5); Triglycerides 96 mg/dL (<150); Uric Acid 5.1 mg/dL (2.5-8.0)
[2023-10-08] MEDS: CARBIDOPA/LEVODOPA 25/100 TABLET PO SCH (08:57)
[2023-10-08] MEDS: ENOXAPARIN 40 MG/0.4 ML SYRINGE SQ SCH (08:57)
[2023-10-08] MEDS: LORazepam 1 MG TABLET PO SCH (15:03)
[2023-10-08] MEDS: OMEPRAZOLE 20 MG CAPSULE PO SCH (17:14)
[2023-10-08] MEDS: POLYETHYLENE GLYCOL 3350 17 GM PACKET PO SCH (21:10)
[2023-10-08] MEDS: MIRTAZAPINE 15 MG TABLET PO SCH (21:10)
[2023-10-09 06:37] LABS: ALT/SGPT < 40 U/L (<40); AST/SGOT 14 U/L (<32); Albumin 2.9 gm/dL (3.2-5.2); Albumin/Globulin Ratio 0.8 (1.0-2.3); Alkaline Phosphatase 71 U/L (39-117); Bilirubin,Direct < 0.2 mg/dL (0-0.3); Bilirubin,Total 0.2 mg/dL (0.1-1.0); Blood Urea Nitrogen 17 mg/dL (8-23); Calcium 8.4 mg/dL (8.6-10.4); Carbon Dioxide 27 mmol/L (22-30); Chloride 104 mmol/L (96-108); Globulin 3.8 gm/dL (2.2-3.7); Glomerular Filtration Rate 60; Glucose 90 mg/dL (70-105); Lactate Dehydrogenase 119 U/L (135-225); Triglycerides 102 mg/dL (<150); Uric Acid 4.9 mg/dL (2.5-8.0)
[2023-10-09] MEDS: LEVOTHYROXINE 50 MCG TABLET PO SCH (07:19)
[2023-10-09] MEDS: ASPIRIN 81 MG TAB.CHEW PO SCH (09:32)
[2023-10-09] MEDS: Fluticasone-Umeclidin-Vilanter [Trelegy Ellipta] PO SCH (09:40)
[2023-10-09] MEDS ORDERED: LORazepam 1 MG TABLET PO SCH (10:55)
[2023-10-09] MEDS: LORazepam 0.5 MG TABLET PO SCH (15:13)
[2023-10-10 06:09] LABS: Basophils # (Auto) 0.04 K/mcL (0.00-0.30); Basophils % (Auto) 0.4 % (0.0-2.0); Eosinophils # (Auto) 0.58 K/mcL (0.00-0.70); Eosinophils % (Auto) 5.6 % (0.0-7.0); Hematocrit 33.3 % (34.1-44.9); Hemoglobin 10.9 g/dL (11.2-15.7); Lymphocytes # (Auto) 2.57 K/mcL (1.50-4.80); Lymphocytes % (Auto) 24.9 % (15.5-49.0); Mean Cell Volume 88.6 fL (80.0-100.0); Mean Corpuscular HGB Conc 32.7 g/dL (31.0-36.0); Mean Platelet Volume 10.3 fL (8.8-12.5); Monocytes # (Auto) 0.96 K/mcL (0.10-0.90); Monocytes % (Auto) 9.3 % (1.0-12.0); Neutrophils % (Auto) 59.4 % (38.0-78.0); Platelet Count 289 K/mcL (140-440); RBC 3.76 M/mcL (3.59-5.38); Red Cell Distribution Width 13.2 % (11.5-14.5); WBC 10.3 K/mcL (4.5-11.0)
[2023-10-10 06:27] LABS: ALT/SGPT < 40 U/L (<40); AST/SGOT 16 U/L (<32); Albumin 2.8 gm/dL (3.2-5.2); Albumin/Globulin Ratio 0.7 (1.0-2.3); Alkaline Phosphatase 67 U/L (39-117); Bilirubin,Direct < 0.2 mg/dL (0-0.3); Bilirubin,Total < 0.2 mg/dL (0.1-1.0); Blood Urea Nitrogen 21 mg/dL (8-23); Calcium 8.3 mg/dL (8.6-10.4); Carbon Dioxide 27 mmol/L (22-30); Chloride 106 mmol/L (96-108); Glomerular Filtration Rate 60; Glucose 97 mg/dL (70-105); Lactate Dehydrogenase 148 U/L (135-225); Phosphorous 2.2 mg/dL (2.5-4.5); Triglycerides 84 mg/dL (<150); Uric Acid 4.9 mg/dL (2.5-8.0)
[2023-10-10] MEDS: CEPHALEXIN 500 MG CAPSULE PO SCH (12:17)
[2023-10-10] MEDS ORDERED: LORazepam 0.5 MG TABLET PO PRN (18:54)
[2023-10-10] MEDS: LORazepam 0.5 MG TABLET PO ONE (20:03)
[2023-10-10] MEDS: LORazepam 0.5 MG TABLET ONE (20:04)
[2023-10-11] MEDS: LORazepam 0.5 MG TABLET PO SCH ×2 (09:55→16:36)
[2023-10-11] MEDS: ceFAZolin 1 GM VIAL IV SCH (13:09)
[2023-10-12 07:14] VITALS: TEMP 97.2; O2SAT 98
== END 2023-10-12 13:44 | disposition swing bed (61) | DRG 603 ==
LOC: ED 17:38 → MEDSUR 23:19
PROVIDERS: ADMIT Internal Medicine; ATTEND Internal Medicine

== ENCOUNTER 2024-06-23 18:16 | Inpatient (IN) ==
[2024-06-23] MEDS ORDERED: IOPAMIDOL 100 ML BOTTLE IV ONE (18:17)
[2024-06-23] MEDS: cefTRIAXone 1 GM VIAL IV ONE (19:01)
[2024-06-23 20:07] LABS: C-Reactive Protein 2.92 mg/dL (0.03-0.80)
[2024-06-23 20:08] LABS: Blood Urea Nitrogen 37 mg/dL (8-23); Calcium 8.8 mg/dL (8.6-10.4); Carbon Dioxide 24 mmol/L (22-30); Chloride 100 mmol/L (96-108); Glomerular Filtration Rate 42; Glucose 126 mg/dL (70-105); Potassium 5.4 mmol/L (3.3-5.1); Sodium 139 mmol/L (133-145)
[2024-06-23] MEDS: DOXYCYCLINE 100 MG in DEXTROSE 5% IN WATER 100 ML IV ONE (20:12)
[2024-06-23] MEDS: ACETAMINOPHEN 1,000 MG/100 ML BAG IV ONE (20:13)
[2024-06-23] MEDS: 0.9 % SODIUM CHLORIDE 500 ML IV ONE ×3 (20:13→21:05)
[2024-06-23 20:35] LABS: Appearance,Urine Cloudy (Clear); Bacteria,Urine Many /hpf (0); Bilirubin,Urine Negative (Negative); Color,Urine Yellow; Glucose,Urine (UA) Negative (Negative); Ketones,Urine Trace mg/dL (Negative); Leukocyte Esterase,Urine Trace /uL (Negative); Mucus,Urine Few /hpf; Nitrate,Urine Positive (Negative); PH,Urine 5.5 (5.0-9.0); Protein,Urine 30 mg/dL (Negative); Specific Gravity,Urine 1.025 (1.000-1.035); Urine Blood Moderate ery/mcL (Negative); Urine RBC 1 /hpf (0-3); Urine Squamous Epithelial Cell 1 /hpf (0-4); Urine WBC 35 /hpf (0-4); Urobilinogen,Urine Normal
[2024-06-23 20:55] LABS: Thyroid Stimulating Hormone 3.07 uIU/mL (0.27-5.01)
[2024-06-23 21:34] LABS: Free T4 (Free Thyroxine) 1.42 ng/dL (0.93-1.70)
[2024-06-23] MEDS ORDERED: SENNOSIDES 1 TABLET PO PRN (23:05)
[2024-06-23] MEDS ORDERED: LACTULOSE 20 GM/30 ML ORAL.SOL PO PRN (23:05)
[2024-06-23] MEDS ORDERED: ONDANSETRON 4 MG/2 ML VIAL IV PRN (23:05)
[2024-06-23] MEDS: LORazepam 2 MG/ML VIAL IV SCH (23:23)
[2024-06-23] MEDS: 0.9 % SODIUM CHLORIDE 1,000 ML IV SCH (23:23)
[2024-06-23] MEDS: LORazepam 2 MG/ML VIAL ONE (23:24)
[2024-06-24] MEDS: IPRATROPIUM/ALBUTEROL 3 ML AMPUL.NEB NEB SCH (00:41)
[2024-06-24] MEDS: IPRATROPIUM/ALBUTEROL 3 ML AMPUL.NEB NEB ONE ×2 (00:42→06:57)
[2024-06-24] MEDS: 0.9 % SODIUM CHLORIDE 10 ML SYRINGE IV SCH (05:19)
[2024-06-24 07:14] LABS: Basophils # (Auto) 0.02 K/mcL (0.00-0.30); Basophils % (Auto) 0.1 % (0.0-2.0); Eosinophils # (Auto) 0.02 K/mcL (0.00-0.70); Eosinophils % (Auto) 0.1 % (0.0-7.0); Hematocrit 33.6 % (34.1-44.9); Hemoglobin 10.6 g/dL (11.2-15.7); Lymphocytes # (Auto) 2.12 K/mcL (1.50-4.80); Lymphocytes % (Auto) 9.5 % (15.5-49.0); Mean Cell Volume 94.1 fL (80.0-100.0); Mean Corpuscular HGB Conc 31.5 g/dL (31.0-36.0); Mean Platelet Volume 9.6 fL (8.8-12.5); Monocytes # (Auto) 2.15 K/mcL (0.10-0.90); Monocytes % (Auto) 9.7 % (1.0-12.0); Neutrophils % (Auto) 80.2 % (38.0-78.0); Platelet Count 365 K/mcL (140-440); RBC 3.57 M/mcL (3.59-5.38); Red Cell Distribution Width 13.1 % (11.5-14.5); WBC 22.2 K/mcL (4.5-11.0)
[2024-06-24 07:15] LABS: Blood Urea Nitrogen 29 mg/dL (8-23); Carbon Dioxide 25 mmol/L (22-30); Chloride 109 mmol/L (96-108); Glomerular Filtration Rate 47; Glucose 131 mg/dL (70-105); Potassium 4.8 mmol/L (3.3-5.1); Sodium 142 mmol/L (133-145)
[2024-06-24] MEDS: CALCIUM (OYSTER SHELL) 500 MG TABLET PO SCH (09:34)
[2024-06-24] MEDS: LEVOTHYROXINE 50 MCG TABLET PO SCH (09:34)
[2024-06-24] MEDS: OMEPRAZOLE 20 MG CAPSULE PO SCH (09:35)
[2024-06-24] MEDS: cefTRIAXone 1 GM VIAL IV SCH (10:03)
[2024-06-24] MEDS: DOXYCYCLINE 100 MG in DEXTROSE 5% IN WATER 100 ML IV SCH (10:04)
[2024-06-24] MEDS: HEPARIN 5,000 UNIT/ML VIAL SQ SCH (10:16)
[2024-06-24] MEDS: Fluticasone-Umeclidin-Vilanter [Trelegy Ellipta] 200MCG-62.5MCG-25MCG Inhaler INH SCH (11:15)
[2024-06-24] MEDS: CARBIDOPA/LEVODOPA 25/100 TABLET PO SCH (11:16)
[2024-06-24] MEDS: CALCIUM GLUCONATE 4.65 MEQ/10 ML VIAL IV ONE (12:39)
[2024-06-24] MEDS: CALCIUM GLUCONATE 4.65 MEQ in DEXTROSE 5% IN WATER 50 ML IV ONE (13:13)
[2024-06-24] MEDS: SODIUM CHLORIDE 154 MEQ in WATER FOR INJECTION,STERILE 961.5 ML IV SCH (13:14)
[2024-06-24] MEDS: PANTOPRAZOLE 40 MG VIAL IV SCH (17:25)
[2024-06-24] MEDS: 0.9 % SODIUM CHLORIDE 500 ML IV ONE (17:42)
[2024-06-24 18:20] LABS: Basophils # (Auto) 0.01 K/mcL (0.00-0.30); Basophils % (Auto) 0.1 % (0.0-2.0); Eosinophils # (Auto) 0.02 K/mcL (0.00-0.70); Eosinophils % (Auto) 0.1 % (0.0-7.0); Hematocrit 31.1 % (34.1-44.9); Hemoglobin 9.9 g/dL (11.2-15.7); Lymphocytes # (Auto) 1.37 K/mcL (1.50-4.80); Lymphocytes % (Auto) 6.9 % (15.5-49.0); Mean Cell Volume 92.3 fL (80.0-100.0); Mean Corpuscular HGB Conc 31.8 g/dL (31.0-36.0); Mean Platelet Volume 9.3 fL (8.8-12.5); Monocytes % (Auto) 7.5 % (1.0-12.0); Neutrophils % (Auto) 85.1 % (38.0-78.0); Platelet Count 340 K/mcL (140-440); RBC 3.37 M/mcL (3.59-5.38); WBC 19.9 K/mcL (4.5-11.0)
[2024-06-24] MEDS: ACETAMINOPHEN 1,000 MG/100 ML BAG IV PRN (19:02)
[2024-06-24] MEDS: POLYETHYLENE GLYCOL 3350 17 GM PACKET PO SCH (21:12)
[2024-06-24] MEDS: MIRTAZAPINE 15 MG TABLET PO SCH (21:13)
[2024-06-25 06:43] LABS: Basophils # (Auto) 0.03 K/mcL (0.00-0.30); Basophils % (Auto) 0.2 % (0.0-2.0); Eosinophils # (Auto) 0.11 K/mcL (0.00-0.70); Eosinophils % (Auto) 0.6 % (0.0-7.0); Hematocrit 30.9 % (34.1-44.9); Hemoglobin 9.7 g/dL (11.2-15.7); Lymphocytes # (Auto) 1.95 K/mcL (1.50-4.80); Lymphocytes % (Auto) 10.9 % (15.5-49.0); Mean Cell Volume 93.6 fL (80.0-100.0); Mean Corpuscular HGB Conc 31.4 g/dL (31.0-36.0); Mean Platelet Volume 9.8 fL (8.8-12.5); Monocytes # (Auto) 1.71 K/mcL (0.10-0.90); Monocytes % (Auto) 9.6 % (1.0-12.0); Neutrophils % (Auto) 78.5 % (38.0-78.0); Platelet Count 310 K/mcL (140-440); Red Cell Distribution Width 13.3 % (11.5-14.5); WBC 17.9 K/mcL (4.5-11.0)
[2024-06-25] MEDS: 0.9 % SODIUM CHLORIDE 250 ML IV ONE (07:30)
[2024-06-25 08:26] LABS: Blood Urea Nitrogen 18 mg/dL (8-23); Carbon Dioxide 21 mmol/L (22-30); Chloride 108 mmol/L (96-108); Glomerular Filtration Rate 69; Glucose 91 mg/dL (70-105); Potassium 3.9 mmol/L (3.3-5.1); Sodium 139 mmol/L (133-145)
[2024-06-25] MEDS: CALCIUM GLUCONATE 9.3 MEQ in DEXTROSE 5% IN WATER 50 ML IV ONE (13:01)
[2024-06-25] MEDS: CALCIUM GLUCONATE 4.65 MEQ/10 ML VIAL IV ONE (13:29)
[2024-06-25] MEDS ORDERED: 0.9 % SODIUM CHLORIDE 1,000 ML IV SCH (15:30)
[2024-06-25] MEDS: SODIUM CHLORIDE 154 MEQ in WATER FOR INJECTION,STERILE 961.5 ML IV SCH (17:10)
[2024-06-25] MEDS ORDERED: hydrALAZINE 20 MG/ML VIAL IV PRN (17:42)
[2024-06-26 06:43] LABS: Basophils # (Auto) 0.01 K/mcL (0.00-0.30); Basophils % (Auto) 0.1 % (0.0-2.0); Eosinophils # (Auto) 0.16 K/mcL (0.00-0.70); Eosinophils % (Auto) 1.2 % (0.0-7.0); Hematocrit 29.7 % (34.1-44.9); Hemoglobin 9.4 g/dL (11.2-15.7); Lymphocytes # (Auto) 2.12 K/mcL (1.50-4.80); Lymphocytes % (Auto) 16.4 % (15.5-49.0); Mean Cell Volume 93.4 fL (80.0-100.0); Mean Corpuscular HGB Conc 31.6 g/dL (31.0-36.0); Mean Platelet Volume 9.9 fL (8.8-12.5); Monocytes # (Auto) 1.17 K/mcL (0.10-0.90); Neutrophils % (Auto) 73.1 % (38.0-78.0); Platelet Count 296 K/mcL (140-440); RBC 3.18 M/mcL (3.59-5.38); WBC 12.9 K/mcL (4.5-11.0)
[2024-06-26 07:53] LABS: Blood Urea Nitrogen 14 mg/dL (8-23); Carbon Dioxide 21 mmol/L (22-30); Chloride 110 mmol/L (96-108); Glomerular Filtration Rate 69; Glucose 84 mg/dL (70-105); Potassium 3.7 mmol/L (3.3-5.1); Sodium 140 mmol/L (133-145)
[2024-06-26] MEDS: CALCIUM GLUCONATE 9.3 MEQ in DEXTROSE 5% IN WATER 50 ML IV ONE (10:38)
[2024-06-27 06:36] LABS: Basophils # (Auto) 0.02 K/mcL (0.00-0.30); Basophils % (Auto) 0.2 % (0.0-2.0); Eosinophils # (Auto) 0.74 K/mcL (0.00-0.70); Eosinophils % (Auto) 7.6 % (0.0-7.0); Hematocrit 31.1 % (34.1-44.9); Hemoglobin 9.9 g/dL (11.2-15.7); Lymphocytes % (Auto) 24.6 % (15.5-49.0); Mean Corpuscular HGB Conc 31.8 g/dL (31.0-36.0); Mean Platelet Volume 9.9 fL (8.8-12.5); Monocytes # (Auto) 0.89 K/mcL (0.10-0.90); Monocytes % (Auto) 9.1 % (1.0-12.0); Neutrophils % (Auto) 58.2 % (38.0-78.0); Platelet Count 341 K/mcL (140-440); RBC 3.38 M/mcL (3.59-5.38); WBC 9.8 K/mcL (4.5-11.0)
[2024-06-27 07:56] LABS: Blood Urea Nitrogen 13 mg/dL (8-23); Carbon Dioxide 22 mmol/L (22-30); Chloride 112 mmol/L (96-108); Glomerular Filtration Rate 81; Glucose 85 mg/dL (70-105); Potassium 3.7 mmol/L (3.3-5.1); Sodium 142 mmol/L (133-145)
[2024-06-27] MEDS: amLODIPine 10 MG TABLET PO SCH (14:17)
[2024-06-27] MEDS: CARBIDOPA/LEVODOPA 25/100 TABLET PO SCH (16:43)
[2024-06-27] MEDS: LORazepam 1 MG TABLET PO PRN (20:31)
[2024-06-28 07:04] LABS: Blood Urea Nitrogen 10 mg/dL (8-23); Carbon Dioxide 23 mmol/L (22-30); Chloride 108 mmol/L (96-108); Glomerular Filtration Rate 81; Glucose 95 mg/dL (70-105); Potassium 3.5 mmol/L (3.3-5.1); Sodium 140 mmol/L (133-145)
[2024-06-28 07:38] LABS: Basophils # (Auto) 0.07 K/mcL (0.00-0.30); Basophils % (Auto) 0.6 % (0.0-2.0); Eosinophils # (Auto) 0.54 K/mcL (0.00-0.70); Eosinophils % (Auto) 4.8 % (0.0-7.0); Hematocrit 35.3 % (34.1-44.9); Hemoglobin 11.3 g/dL (11.2-15.7); Lymphocytes # (Auto) 2.48 K/mcL (1.50-4.80); Lymphocytes % (Auto) 21.8 % (15.5-49.0); Mean Cell Volume 90.1 fL (80.0-100.0); Mean Platelet Volume 9.4 fL (8.8-12.5); Monocytes # (Auto) 1.05 K/mcL (0.10-0.90); Monocytes % (Auto) 9.2 % (1.0-12.0); Neutrophils % (Auto) 62.7 % (38.0-78.0); Platelet Count 431 K/mcL (140-440); RBC 3.92 M/mcL (3.59-5.38); WBC 11.4 K/mcL (4.5-11.0)
[2024-06-28] MEDS: ENOXAPARIN 40 MG/0.4 ML SYRINGE SQ SCH (09:14)
[2024-06-29 07:07] LABS: Basophils # (Auto) 0.01 K/mcL (0.00-0.30); Basophils % (Auto) 0.1 % (0.0-2.0); Eosinophils # (Auto) 0.23 K/mcL (0.00-0.70); Eosinophils % (Auto) 2.2 % (0.0-7.0); Hemoglobin 10.4 g/dL (11.2-15.7); Lymphocytes # (Auto) 2.08 K/mcL (1.50-4.80); Lymphocytes % (Auto) 19.6 % (15.5-49.0); Mean Cell Volume 92.2 fL (80.0-100.0); Mean Corpuscular HGB Conc 31.5 g/dL (31.0-36.0); Mean Platelet Volume 9.1 fL (8.8-12.5); Monocytes # (Auto) 1.03 K/mcL (0.10-0.90); Monocytes % (Auto) 9.7 % (1.0-12.0); Neutrophils % (Auto) 67.9 % (38.0-78.0); Platelet Count 382 K/mcL (140-440); RBC 3.58 M/mcL (3.59-5.38); WBC 10.6 K/mcL (4.5-11.0)
[2024-06-29 08:08] LABS: Blood Urea Nitrogen 14 mg/dL (8-23); Carbon Dioxide 23 mmol/L (22-30); Chloride 107 mmol/L (96-108); Glomerular Filtration Rate 69; Glucose 88 mg/dL (70-105); Potassium 3.6 mmol/L (3.3-5.1); Sodium 140 mmol/L (133-145)
[2024-06-29 16:44] VITALS: TEMP 98.1; O2SAT 97
== END 2024-06-29 15:38 | disposition home health service (06) | DRG 689 ==
LOC: ED 18:16 → ICU 22:57 → MEDSUR 06-28 16:12
PROVIDERS: ADMIT Student in an Organized Health Care Education/Training Program; ATTEND Student in an Organized Health Care Education/Training Program

== ENCOUNTER 2025-04-23 20:13 | Inpatient (IN) ==
[2025-04-23] MEDS ORDERED: IOPAMIDOL 100 ML BOTTLE IV ONE (20:14)
[2025-04-23 20:53] LABS: Basophils # (Auto) 0.03 K/mcL (0.00-0.30); Basophils % (Auto) 0.3 % (0.0-2.0); Eosinophils # (Auto) 0.31 K/mcL (0.00-0.70); Eosinophils % (Auto) 2.8 % (0.0-7.0); Hematocrit 37.7 % (34.1-44.9); Hemoglobin 11.9 g/dL (11.2-15.7); Lymphocytes # (Auto) 3.78 K/mcL (1.50-4.80); Lymphocytes % (Auto) 33.8 % (15.5-49.0); Mean Corpuscular HGB Conc 31.6 g/dL (31.0-36.0); Monocytes # (Auto) 0.88 K/mcL (0.10-0.90); Monocytes % (Auto) 7.9 % (1.0-12.0); Neutrophils % (Auto) 55.0 % (38.0-78.0); Platelet Count 308 K/mcL (140-440); RBC 4.04 M/mcL (3.59-5.38); WBC 11.2 K/mcL (4.5-11.0)
[2025-04-23] MEDS: CEFEPIME 2 GM VIAL IV ONE (20:58)
[2025-04-23] MEDS: ACETAMINOPHEN 1,000 MG/100 ML BAG IV ONE (21:03)
[2025-04-23] MEDS: VANCOMYCIN 1,500 MG in 0.9 % SODIUM CHLORIDE 500 ML IV ONE (21:16)
[2025-04-23 21:19] LABS: INR 1.0 (0.9-1.1); Prothrombin Time 13.8 sec (11.9-14.5)
[2025-04-23 21:43] LABS: ALT/SGPT 11 U/L (<40); AST/SGOT 17 U/L (<32); Albumin 3.5 gm/dL (3.2-5.2); Albumin/Globulin Ratio 0.9 (1.0-2.3); Alkaline Phosphatase 74 U/L (39-117); Anion Gap 11.0 (8.0-16.0); Bilirubin,Total 0.3 mg/dL (0.1-1.0); Blood Urea Nitrogen 24 mg/dL (8-23); Calcium 8.8 mg/dL (8.6-10.4); Carbon Dioxide 25 mmol/L (22-30); Chloride 104 mmol/L (96-108); Globulin 3.9 gm/dL (2.2-3.7); Glucose 125 mg/dL (70-105); Potassium 3.8 mmol/L (3.3-5.1); Sodium 140 mmol/L (133-145)
[2025-04-23 22:09] LABS: Bacteria,Urine 0 /hpf (0); Color,Urine Yellow; Glucose,Urine (UA) Negative (Negative); Ketones,Urine Trace mg/dL (Negative); Leukocyte Esterase,Urine Negative /uL (Negative); Mucus,Urine Few /hpf; PH,Urine 5.5 (5.0-9.0); Protein,Urine 30 mg/dL (Negative); Specific Gravity,Urine 1.025 (1.000-1.035); Urobilinogen,Urine Normal
[2025-04-23 22:16] LABS: C-Reactive Protein < 0.30 mg/dL (0.03-0.80)
[2025-04-23] MEDS: IPRATROPIUM/ALBUTEROL 3 ML AMPUL.NEB NEB ONE (22:27)
[2025-04-24] MEDS ORDERED: IPRATROPIUM/ALBUTEROL 3 ML AMPUL.NEB NEB PRN (01:04)
[2025-04-24] MEDS ORDERED: SENNOSIDES 1 TABLET PO PRN (01:04)
[2025-04-24] MEDS ORDERED: ONDANSETRON 4 MG/2 ML VIAL IV PRN (01:04)
[2025-04-24] MEDS ORDERED: LACTULOSE 20 GM/30 ML ORAL.SOL PO PRN (01:04)
[2025-04-24] MEDS: LACTATED RINGERS 1,000 ML IV SCH (01:12)
[2025-04-24] MEDS: PIPERACILLIN SODIUM/TAZOBACTAM 4.5 GM in DEXTROSE 5% IN WATER 50 ML IV SCH (02:15)
[2025-04-24] MEDS: VANCOMYCIN PER PHARMACY IV ONE (02:15)
[2025-04-24 02:45] LABS: Thyroid Stimulating Hormone 2.47 uIU/mL (0.27-5.01)
[2025-04-24] MEDS: IPRATROPIUM/ALBUTEROL 3 ML AMPUL.NEB NEB ONE (03:04)
[2025-04-24] MEDS: IPRATROPIUM/ALBUTEROL 3 ML AMPUL.NEB NEB SCH (03:04)
[2025-04-24 03:05] LABS: ALT/SGPT < 5 U/L (<40); AST/SGOT 22 U/L (<32); Albumin 3.7 gm/dL (3.2-5.2); Albumin/Globulin Ratio 0.9 (1.0-2.3); Alkaline Phosphatase 76 U/L (39-117); Anion Gap 17.0 (8.0-16.0); Bilirubin,Direct < 0.2 mg/dL (0-0.3); Bilirubin,Total 0.5 mg/dL (0.1-1.0); Blood Urea Nitrogen 23 mg/dL (8-23); Calcium 9.0 mg/dL (8.6-10.4); Carbon Dioxide 18 mmol/L (22-30); Chloride 104 mmol/L (96-108); Globulin 4.3 gm/dL (2.2-3.7); Glucose 123 mg/dL (70-105); Phosphorous 3.8 mg/dL (2.5-4.5); Potassium 4.4 mmol/L (3.3-5.1); Sodium 139 mmol/L (133-145); Triglycerides 74 mg/dL (<150); Uric Acid 5.7 mg/dL (2.5-8.0)
[2025-04-24] MEDS: 0.9 % SODIUM CHLORIDE 10 ML SYRINGE IV SCH (04:18)
[2025-04-24 06:36] LABS: Basophils # (Auto) 0.01 K/mcL (0.00-0.30); Basophils % (Auto) 0.1 % (0.0-2.0); Eosinophils # (Auto) 0 K/mcL (0.00-0.70); Eosinophils % (Auto) 0 % (0.0-7.0); Hematocrit 40.1 % (34.1-44.9); Hemoglobin 12.4 g/dL (11.2-15.7); Lymphocytes # (Auto) 0.68 K/mcL (1.50-4.80); Lymphocytes % (Auto) 4.5 % (15.5-49.0); Mean Corpuscular HGB Conc 30.9 g/dL (31.0-36.0); Monocytes # (Auto) 0.10 K/mcL (0.10-0.90); Monocytes % (Auto) 0.7 % (1.0-12.0); Neutrophils % (Auto) 94.5 % (38.0-78.0); Platelet Count 286 K/mcL (140-440); RBC 4.22 M/mcL (3.59-5.38); WBC 15.2 K/mcL (4.5-11.0)
[2025-04-24] MEDS ORDERED: VANCOMYCIN PER PHARMACY IV SCH (06:45)
[2025-04-24] MEDS: PIPERACILLIN SODIUM/TAZOBACTAM 4.5 GM in DEXTROSE 5% IN WATER 100 ML IV SCH (07:24)
[2025-04-24 07:32] LABS: C-Reactive Protein < 0.30 mg/dL (0.03-0.80)
[2025-04-24] MEDS: ENOXAPARIN 40 MG/0.4 ML SYRINGE SQ SCH (09:37)
[2025-04-24] MEDS: ACETAMINOPHEN 650 MG/65 ML BAG IV PRN (09:38)
[2025-04-24] MEDS: Fluticasone-Umeclidin-Vilanter [Trelegy Ellipta] INH SCH (12:13)
[2025-04-24] MEDS: DOCUSATE SODIUM 100 MG CAPSULE PO SCH (14:55)
[2025-04-24] MEDS ORDERED: OLANZapine 10 MG VIAL IM PRN (19:40)
[2025-04-24] MEDS ORDERED: VANCOMYCIN 500 MG in 0.9 % SODIUM CHLORIDE 100 ML IV SCH (21:00)
[2025-04-24] MEDS: LORazepam 2 MG/ML VIAL IV PRN (21:08)
[2025-04-25 06:00] LABS: Basophils # (Auto) 0.03 K/mcL (0.00-0.30); Basophils % (Auto) 0.2 % (0.0-2.0); Eosinophils # (Auto) 0 K/mcL (0.00-0.70); Eosinophils % (Auto) 0 % (0.0-7.0); Hematocrit 34.6 % (34.1-44.9); Hemoglobin 11.0 g/dL (11.2-15.7); Lymphocytes # (Auto) 1.91 K/mcL (1.50-4.80); Lymphocytes % (Auto) 12.4 % (15.5-49.0); Mean Corpuscular HGB Conc 31.8 g/dL (31.0-36.0); Monocytes # (Auto) 1.48 K/mcL (0.10-0.90); Monocytes % (Auto) 9.6 % (1.0-12.0); Neutrophils % (Auto) 77.6 % (38.0-78.0); Platelet Count 261 K/mcL (140-440); RBC 3.69 M/mcL (3.59-5.38); WBC 15.4 K/mcL (4.5-11.0)
[2025-04-25 07:09] LABS: ALT/SGPT < 5 U/L (<40); AST/SGOT 17 U/L (<32); Albumin 3.2 gm/dL (3.2-5.2); Albumin/Globulin Ratio 0.9 (1.0-2.3); Alkaline Phosphatase 64 U/L (39-117); Anion Gap 14.0 (8.0-16.0); Bilirubin,Direct < 0.2 mg/dL (0-0.3); Bilirubin,Total 0.4 mg/dL (0.1-1.0); Blood Urea Nitrogen 17 mg/dL (8-23); Calcium 8.8 mg/dL (8.6-10.4); Carbon Dioxide 23 mmol/L (22-30); Chloride 105 mmol/L (96-108); Globulin 3.5 gm/dL (2.2-3.7); Glucose 103 mg/dL (70-105); Phosphorous 2.4 mg/dL (2.5-4.5); Potassium 3.7 mmol/L (3.3-5.1); Sodium 142 mmol/L (133-145); Triglycerides 66 mg/dL (<150); Uric Acid 3.0 mg/dL (2.5-8.0)
[2025-04-25] MEDS: CARBIDOPA/LEVODOPA 25/100 TABLET PO SCH (10:25)
[2025-04-26 06:33] LABS: Basophils # (Auto) 0.03 K/mcL (0.00-0.30); Basophils % (Auto) 0.2 % (0.0-2.0); Eosinophils # (Auto) 0.07 K/mcL (0.00-0.70); Eosinophils % (Auto) 0.5 % (0.0-7.0); Hematocrit 36.1 % (34.1-44.9); Hemoglobin 11.5 g/dL (11.2-15.7); Lymphocytes # (Auto) 3.35 K/mcL (1.50-4.80); Lymphocytes % (Auto) 22.0 % (15.5-49.0); Mean Corpuscular HGB Conc 31.9 g/dL (31.0-36.0); Monocytes # (Auto) 1.41 K/mcL (0.10-0.90); Monocytes % (Auto) 9.3 % (1.0-12.0); Neutrophils % (Auto) 67.8 % (38.0-78.0); Platelet Count 281 K/mcL (140-440); RBC 3.87 M/mcL (3.59-5.38); WBC 15.2 K/mcL (4.5-11.0)
[2025-04-26 06:52] LABS: C-Reactive Protein < 0.30 mg/dL (0.03-0.80)
[2025-04-26 07:36] LABS: ALT/SGPT < 40 U/L (<40); AST/SGOT 17 U/L (<32); Albumin 3.3 gm/dL (3.2-5.2); Albumin/Globulin Ratio 1.0 (1.0-2.3); Alkaline Phosphatase 61 U/L (39-117); Anion Gap 12.0 (8.0-16.0); Bilirubin,Direct < 0.2 mg/dL (0-0.3); Bilirubin,Total 0.3 mg/dL (0.1-1.0); Blood Urea Nitrogen 23 mg/dL (8-23); Calcium 8.7 mg/dL (8.6-10.4); Carbon Dioxide 24 mmol/L (22-30); Chloride 105 mmol/L (96-108); Globulin 3.4 gm/dL (2.2-3.7); Glucose 88 mg/dL (70-105); Phosphorous 2.2 mg/dL (2.5-4.5); Potassium 4.0 mmol/L (3.3-5.1); Sodium 141 mmol/L (133-145); Triglycerides 83 mg/dL (<150); Uric Acid 2.8 mg/dL (2.5-8.0)
[2025-04-26] MEDS: AMOXICILLIN/POTASSIUM CLAV 875 MG TABLET PO SCH (08:50)
[2025-04-27 05:55] LABS: Basophils # (Auto) 0.03 K/mcL (0.00-0.30); Basophils % (Auto) 0.3 % (0.0-2.0); Eosinophils # (Auto) 0.10 K/mcL (0.00-0.70); Eosinophils % (Auto) 0.9 % (0.0-7.0); Hematocrit 38.8 % (34.1-44.9); Hemoglobin 12.4 g/dL (11.2-15.7); Lymphocytes # (Auto) 3.22 K/mcL (1.50-4.80); Lymphocytes % (Auto) 29.8 % (15.5-49.0); Mean Corpuscular HGB Conc 32.0 g/dL (31.0-36.0); Monocytes # (Auto) 1.19 K/mcL (0.10-0.90); Monocytes % (Auto) 11.0 % (1.0-12.0); Neutrophils % (Auto) 57.8 % (38.0-78.0); Platelet Count 316 K/mcL (140-440); RBC 4.20 M/mcL (3.59-5.38); WBC 10.8 K/mcL (4.5-11.0)
[2025-04-27 06:08] LABS: ALT/SGPT < 5 U/L (<40); AST/SGOT 17 U/L (<32); Albumin 3.4 gm/dL (3.2-5.2); Albumin/Globulin Ratio 0.9 (1.0-2.3); Alkaline Phosphatase 67 U/L (39-117); Anion Gap 10.0 (8.0-16.0); Bilirubin,Direct < 0.2 mg/dL (0-0.3); Bilirubin,Total 0.4 mg/dL (0.1-1.0); Blood Urea Nitrogen 23 mg/dL (8-23); Calcium 8.8 mg/dL (8.6-10.4); Carbon Dioxide 26 mmol/L (22-30); Chloride 102 mmol/L (96-108); Globulin 3.6 gm/dL (2.2-3.7); Glucose 86 mg/dL (70-105); Phosphorous 2.2 mg/dL (2.5-4.5); Potassium 3.7 mmol/L (3.3-5.1); Sodium 138 mmol/L (133-145); Triglycerides 138 mg/dL (<150); Uric Acid 3.3 mg/dL (2.5-8.0)
[2025-04-27] MEDS: POTASSIUM PHOSPHATE 40 MEQ in DEXTROSE 5% IN WATER 500 ML IV ONE (11:18)
[2025-04-27 16:46] VITALS: TEMP 97.3; O2SAT 91
== END 2025-04-27 16:15 | DRG 189 ==
LOC: ED 20:13 → ICU 04-24 00:46
PROVIDERS: ADMIT Student in an Organized Health Care Education/Training Program; ATTEND Student in an Organized Health Care Education/Training Program